=== PATIENT | female | born 1940 | race African-American/Black ===

== ENCOUNTER 2017-12-22 15:34 | Inpatient (IN) ==
--- OUTSIDE RECORDS SUMMARY | 2017-12-22 16:51 | External Medical Summary | Continuity of Care Document ---
:1940 Author Organization [facility] Allergies Active Description Code Type Severity Reaction Onset Reported/ Identified Relationship Clinical to Patient Status Yes No Known No Drug Unknown N/A 12/07/2014 Allergies Known Aller Aller gy gies Yes acetaminophe aceta Drug Mild nausea 08/23/2016 n minop Aller hen gy Yes hydrocodone hydro Drug Mild nausea 08/23/2016 codon Aller e gy Medications There is no data. Problems There is no data. Procedures There is no data.<section xmlns="urn:hl7-org:v3" xmlns:xsi=" http://www.[employer].org/2001/XMLSchema-instance"> <templateId root=" [id number]" /> <templateId root=" 2.16.840.1.484277.10.20.22.2.3.1" /> <code codeSystemName=" LOINC" codeSystem="[id number]" code="27552-4&quot ; displayName="Results" /> <title>Results</title> &lt ;text> <table> <thead> <tr> <th& gt;Test</th> <th>Result</th> <th>Range </th> </tr> </thead> <tbody> &lt ;tr> <th colspan="10">CBC W/DIFF - 08/23/16 04:19&lt ;/th> </tr> <tr> <td>EOSINOPHIL #&lt ;/td> <td>0.3 k/cumm</td> <td>0.1-0.5< /td> </tr> <tr> <td>EOSINOPHIL & #37;</td> <td>3 %</td> <td>2-4 </td> </tr> <tr> <td>GRANULOCYTE #</td> <td>9.2 k/cumm</td> <td>2.0-9.0 </td> </tr> <tr> <td>GRANULOCYTE %</td> <td>84 %</td> <td& gt;50-75</td> </tr> <tr> <td> LYMPHOCYTE #</td><td>1.3 k/cumm</td> <td>1.0- 4.0</td> </tr> <tr> <td> LYMPHOCYTE %</td> <td>11 %</td> <td>20-30</td> </tr> <tr> < td>MEAN CELLHGB</td> <td>31.5 pg</td> &lt ;td>27.0-33.0</td> </tr> <tr> <td >MEAN CELL HGB CONCENTRATION</td> <td>33.1 g/dL</td& gt; <td>32.0-37.0</td> </tr> <tr&gt ; <td>MEAN CELL VOLUME</td> <td>95.1 fl</ td> <td>80.0-100.0</td> </tr> <tr > <td>MONOCYTE #</td> <td>0.2 k/cumm</ td> <td>0.1-1.0</td> </tr> <tr&gt ; <td>MONOCYTE %</td> <td>2 &#37 ;</td> <td>4-6</td> </tr> <tr& gt; <td>RED BLOOD CELL</td> <td>3.68 m/cumm& lt;/td> <td>4.00-6.00</td> </tr> &lt ;tr> <td>RED CELL DISTRIBUTION WIDTH</td> <td& gt;12.3 %</td> <td>11.0-15.6</td> < /tr> <tr> <td>WHITE BLOOD CELL</td> <td>11.0 k/cumm</td> <td>5.0-10.0</td> </tr> <tr> <td>HEMOGLOBIN</td> <td>11.6 gm/dL</td> <td>12.0-16.0</td> </tr> <tr> <td>HEMATOCRIT</td> <td>35.0 %</td> <td>37.0-47.0</td&gt ; </tr> <tr> <td>PLATELET COUNT</td& gt; <td>262 k/cumm</td> <td>150-450</td& gt; </tr> <tr> <th colspan="10"& gt;TROPONIN I - 08/23/16 04:19</th> </tr> <tr> <td>TROPONIN I</td> <td>0.59 ng/mL</td&gt ; <td>< 0.07</td> </tr> <tr& gt; <th colspan="10">D-DIMER QUANT - 08/23/16 04:19< /th> </tr> <tr> <td>D-DIMER QUANT&lt ;/td> <td>699 ng/mL</td> <td>0-229</td > </tr> <tr> <th colspan="10"> IRON W/ BINDING CAPACITY - 08/23/16 07:07</th> </tr> & lt;tr> <td>IRON SATURATION</td><td>13 % SAT</td> <td>11-46</td> </tr> &lt ;tr> <td>IRON BINDING CAPACITY, TOTAL</td> < td>330 mcg/dL</td> <td>250-450</td> </tr > <tr> <td>IRON</td> <td>43 mcg/dL</td> <td>35-150</td> </tr> <tr > <th colspan="10">B-TYPE NATRIURETIC PEPTIDE - 07:07</th> </tr> <tr> <td>B -TYPE NATRIURETIC PEPTIDE</td> <td>161 pg/mL</td> <td>< 100</td> </tr> <tr> <th colspan="10">HEMOGLOBIN A1C - 08/23/16 07:07</th& gt; </tr> <tr> <td>HEMOGLOBIN A1C</ td> <td>5.3 %</td> <td>< 5.7</td> </tr> <tr> <th colspan=& quot;10">METABOLIC PANEL, BASIC - 08/23/16 07:08</th> </ tr> <tr> <td>POTASSIUM</td> <td> 3.3 mmol/L</td> <td>3.5-5.3</td> </tr> <tr> <td>EST GFR (MDRD)</td> <td& gt;> 60 mL/min</td> <td>> 59</td> </tr> <tr> <td>ANION GAP</td> <td>8 mmol/L</td> <td>5-15</td> </tr> <tr> <td>EST CrCl (CG)</td> <td& gt;57 mL/min</td> <td>> 59</td> </tr > <tr> <td>GLUCOSE</td> <td>161 mg/dL </td> <td>70-99</td> </tr> <tr > <td>CALCIUM</td> <td>10.6 mg/dL</td& gt; <td>8.5-10.1</td> </tr> <tr> <td>BLOOD UREA NITROGEN</td> <td>10 mg/dL</td& gt; <td>7-20</td> </tr> <tr> <td>CREATININE</td> <td>0.9 mg/dL</td> <td>0.6-1.0</td> </tr> <tr> &lt ;td>SODIUM</td> <td>138 mmol/L</td> < td>135-148</td> </tr> <tr> <td&gt ;CHLORIDE</td> <td>101 mmol/L</td> <td> 98-110</td> </tr> <tr> <td>CARBON DIOXIDE</td> <td>29 mmol/L</td> <td>21-32& lt;/td> </tr> <tr> <th colspan="10 ">LIPID PANEL - 08/23/16 07:08</th> </tr> < tr> <td>CHOLESTEROL/HDL RATIO</td> <td> 2.4 </td> <td> < 5.0</td> </tr> <tr> <td>LDL CHOLESTEROL</td> <td&gt ;79 mg/dL</td> <td>< 100</td> </tr& gt; <tr> <td>VLDL CHOLESTEROL</td> < td>9 mg/dL</td> <td>< 30</td> </ tr> <tr> <td>TRIGLYCERIDES</td> & lt;td>47 mg/dL</td> <td>< 150</td> & lt;/tr> <tr> <td>CHOLESTEROL</td> <td>150 mg/dL</td> <td>< 200</td> </tr> <tr> <td>HDL CHOLESTEROL</td> <td>62 mg/dL</td> <td>> 39</td> </tr> <tr> <th colspan="10"> MAGNESIUM - 08/23/16 07:08</th> </tr> <tr> <td>MAGNESIUM</td> <td>1.6 mg/dL</td> <td>1.8-2.4</td> </tr> <tr> < th colspan="10">FERRITIN - 08/23/16 07:08</th> </tr > <tr> <td>FERRITIN</td> <td&gt ;648 ng/mL</td> <td>8-252</td> </tr> <tr> <th colspan="10">THYROID STIM HORMONE (TSH ) - 08/23/16 07:08</th> </tr> <tr> <td> THYROID STIM HORMONE (TSH)</td> <td>0.49 uIU/mL</td> <td>0.34-4.82</td> </tr> <tr> <th colspan="10">URINALYSIS, ROUTINE - 08/23/16 13:30&lt ;/th> </tr> <tr> <td>UA LEUKOCYTE ESTERASE DIPSTICK</td><td>NEGATIVE </td> <td>NEGATIVE&lt ;/td> </tr> <tr> <td>UA NITRITE DIPSTICK</td> <td>NEGATIVE </td> <td> NEGATIVE</td> </tr> <tr> <td>UA PROTEINDIPSTICK</td> <td>1+ </td> <td> NEGATIVE</td> </tr> <tr> <td>UA GLUCOSE DIPSTICK</td> <td>NEGATIVE </td> &lt ;td>NEGATIVE</td> </tr> <tr> <td>UA KETONE DIPSTICK</td> <td>NEGATIVE </td> < td>NEGATIVE</td> </tr> <tr> <td& gt;UA UROBILINOGEN DIPSTICK</td> <td>NORMAL </td> <td>NORMAL</td> </tr> <tr> <td>UA BILIRUBIN DIPSTICK</td> <td>NEGATIVE </td > <td>NEGATIVE</td> </tr> <tr&gt ; <td>UA BLOOD DIPSTICK</td> <td>TRACE </ td> <td>NEGATIVE</td> </tr> <tr& gt; <td>UA SPECIFIC GRAVITY</td> <td>1.005 </ td> <td>1.015-1.025</td> </tr> <tr> <td>UR PH</td> <td>6.5 </td> <td>5.0-7.0</td> </tr> <tr> < th colspan="10">UA MICROSCOPIC - // 13:30</th> & lt;/tr> <tr> <td>UA BACTERIA</td> <td>NEGATIVE </td> <td>NEGATIVE</td> </tr > <tr> <td>UA EPITHELIAL CELLS</td> <td>1+ epi/hpf</td> <td>0 - 1+</td> & lt;/tr> <tr> <td>UA MUCUS</td> <td& gt;NEGATIVE </td> <td>NEG TO 1+</td> </tr& gt; <tr> <td>UA RBC</td> <td>0- 3 rbc/hpf</td> <td>0 - 3</td> </tr> <tr> <td>UA TRICHOMONAS</td> <td> NEGATIVE </td> <td>NEGATIVE</td> </tr> <tr> <td>UA VOLUME FOR EXAM</td> < td>12.0 mL</td> <td>(12mL STD)</td> </tr > <tr> <td>UA WBC</td> <td>0 -1 wbc/hpf</td> <td>0 - 5</td> </tr> <tr> <td>UA YEAST</td> <td> NEGATIVE </td> <td>NEGATIVE</td> </tr> <tr> <th colspan="10">VIRUS RESPIRATORY PROFILE - 08/23/16 16:15</th> </tr> <tr> <td>Microbiology</td> <td> </td> & lt;td /> </tr> <tr> <th colspan="10"& gt;GRAM STAIN SPUTUM - 08/23/16 17:27</th> </tr> <tr& gt; <td>Microbiology</td> <td> </td>& lt;td /> </tr> <tr> <th colspan=" 10">CBC W/DIFF - 08/24/16 03:45</th> </tr> &lt ;tr> <td>GRANULOCYTE #</td> <td>12.1 k/ cumm</td> <td>2.0-9.0</td> </tr> <tr> <td>GRANULOCYTE %</td> <td& gt;80 %</td> <td>50-75</td> </tr&gt ; <tr> <td>LYMPHOCYTE #</td> <td>2.4 k/ cumm</td> <td>1.0-4.0</td> </tr> <tr> <td>LYMPHOCYTE %</td> <td> 16 %</td> <td>20-30</td> </tr> <tr> <td>MEAN CELL HGB</td> <td> 31.4 pg</td> <td>27.0-33.0</td> </tr> <tr> <td>MEAN CELL HGB CONCENTRATION</td> & lt;td>33.3 g/dL</td> <td>32.0-37.0</td> &lt ;/tr> <tr> <td>MEAN CELL VOLUME</td> <td >94.3 fl</td> <td>80.0-100.0</td> </tr& gt; <tr> <td>MONOCYTE #</td> <td& gt;0.5 k/cumm</td> <td>0.1-1.0</td> </tr&gt ; <tr> <td>MONOCYTE %</td> & lt;td>3 %</td> <td>4-6</td> </tr > <tr> <td>RED BLOOD CELL</td> &lt ;td>3.66 m/cumm</td> <td>4.00-6.00</td> &lt ;/tr> <tr> <td>RED CELL DISTRIBUTION WIDTH</td > <td>12.3 %</td> <td>11.0-15.6& lt;/td> </tr> <tr> <td>WHITE BLOOD CELL</td> <td>15.1 k/cumm</td> <td>5.0 -10.0</td> </tr> <tr> <td> HEMOGLOBIN</td> <td>11.5 gm/dL</td> <td& gt;12.0-16.0</td> </tr> <tr> <td> HEMATOCRIT</td> <td>34.5 %</td> < td>37.0-47.0</td> </tr> <tr> <td& gt;PLATELET COUNT</td> <td>275 k/cumm</td> & lt;td>150-450</td> </tr> <tr> < th colspan="10">PROTHROMBIN TIME WITH INR - 08/24/16 03:45</th& gt; </tr> <tr> <td>INTERNATIONAL NORMAL RATIO</td> <td>1.0 </td> <td>0.9-1.1</td&gt ; </tr> <tr> <td>PROTHROMBIN TIME</ td> <td>12.0 sec</td> <td>10.0-12.9</ td> </tr> <tr> <th colspan="10& quot;>METABOLIC PANEL, BASIC - 08/24/16 03:45</th> </tr> <tr> <td>POTASSIUM</td> <td>4.2 mmol/L& lt;/td> <td>3.5-5.3</td> </tr> < tr> <td>EST GFR (MDRD)</td><td>53 mL/min</td&gt ; <td>> 59</td> </tr> <tr&gt ; <td>ANION GAP</td> <td>12 mmol/L</td&gt ; <td>5-15</td> </tr> <tr> <td>EST CrCl (CG)</td> <td>43 mL/min</td> <td>> 59</td> </tr> <tr> <td>GLUCOSE</td> <td>126 mg/dL</td> <td>70-99</td> </tr> <tr> & lt;td>CALCIUM</td> <td>11.2 mg/dL</td> & lt;td>8.5-10.1</td> </tr> <tr> < td>BLOOD UREA NITROGEN</td> <td>21 mg/dL</td> <td>7-20</td> </tr> <tr> & lt;td>CREATININE</td> <td>1.2 mg/dL</td> <td>0.6-1.0</td> </tr> <tr> < td>SODIUM</td> <td>141 mmol/L</td> <td >135-148</td> </tr> <tr> <td> CHLORIDE</td> <td>103 mmol/L</td> <td> 98-110</td> </tr> <tr> <td> CARBON DIOXIDE</td> <td>26 mmol/L</td> < td>21-32</td> </tr> <tr> <th colspan ="10">MAGNESIUM - 08/24/16 03:45</th> </tr> & lt;tr> <td>MAGNESIUM</td> <td>2.1 mg/dL& lt;/td> <td>1.8-2.4</td> </tr> <tr> <th colspan="10">METABOLIC PANEL, BASIC - 08/25/16 04:01 </th> </tr> <tr> <td>POTASSIUM</td& gt; <td>4.4 mmol/L</td> <td>3.5-5.3</td& gt; </tr> <tr> <td>EST GFR (MDRD)</ td> <td>53 mL/min</td> <td>> 59</td& gt; </tr> <tr> <td>ANION GAP</td> <td>9 mmol/L</td><td>5-15</td> </tr> <tr> <td>EST CrCl (CG)</td> <td&gt ;43 mL/min</td> <td>> 59</td> </tr& gt; <tr> <td>GLUCOSE</td> <td> 125 mg/dL</td> <td>70-99</td> </tr> <tr> <td>CALCIUM</td> <td>10.7 mg/ dL</td> <td>8.5-10.1</td> </tr> & lt;tr> <td>BLOOD UREA NITROGEN</td> <td> 29 mg/dL</td> <td>7-20</td> </tr> <tr> <td>CREATININE</td> <td>1.2 mg/ dL</td> <td>0.6-1.0</td> </tr> & lt;tr> <td>SODIUM</td> <td>140mmol/L</ td> <td>135-148</td> </tr> <tr&gt ; <td>CHLORIDE</td> <td>104 mmol/L</td> <td>98-110</td> </tr> <tr> &lt ;td>CARBON DIOXIDE</td> <td>27 mmol/L</td> <td>21-32</td> </tr> <tr> < th colspan="10">CBC - 08/26/16 04:01</th> </tr>& lt;tr> <td>MEAN CELL HGB</td> <td>30.8 pg </td> <td>27.0-33.0</td> </tr> <tr> <td>MEAN CELL HGB CONCENTRATION</td> <td> 32.0 g/dL</td> <td>32.0-37.0</td> </tr> <tr> <td>MEAN CELL VOLUME</td> < td>96.3 fl</td> <td>80.0-100.0</td> </tr > <tr> <td>RED BLOOD CELL</td> &lt ;td>3.54 m/cumm</td> <td>4.00-6.00</td> &lt ;/tr> <tr> <td>RED CELL DISTRIBUTION WIDTH</td > <td>12.7 %</td> <td>11.0-15.6& lt;/td> </tr> <tr> <td>WHITE BLOOD CELL</td> <td>15.9 k/cumm</td> <td>5.0 -10.0</td> </tr> <tr> <td> HEMOGLOBIN</td> <td>10.9 gm/dL</td> <td& gt;12.0-16.0</td> </tr> <tr> <td> HEMATOCRIT</td> <td>34.1 %</td> < td>37.0-47.0</td> </tr> <tr> <td& gt;PLATELET COUNT</td> <td>244 k/cumm</td> & lt;td>150-450</td> </tr> </tbody> </table > </text> <entry> <organizer moodCode="EVN" classCode="BATTERY"> <templateId root=" [id number].1" /> <id nullFlavor="NA&quot ; /> <code codeSystem="local" code="CBCD" displayName="CBC W/DIFF" /> <statusCode code=" completed" /> <component> <observation moodCode=& quot;EVN" classCode="OBS"> <templateId root=" [id number].2" /> <id nullFlavor="NA& quot; /> <code codeSystem="local" code="EO#" displayName="EOSINOPHIL #" /> <statusCode code=" completed" /> <effectiveTime value="[id number]" /> <value unit="k/cumm" xsi:type="PQ" value=& quot;0.3" /> <referenceRange> < observationRange> <text>0.1-0.5</text> &lt ;/observationRange> </referenceRange> </observation& gt; </component> <component> <observation moodCode="EVN" classCode="OBS"> <templateId root="[id number].2" /> <id nullFlavor ="NA" /><code codeSystem="local" code="EO&#37 ;" displayName="EOSINOPHIL %" /> < statusCode code="completed" /> <effectiveTimevalue=& quot;850674885124" /> <value unit="%" xsi: type="PQ" value="3" /> <referenceRange> <observationRange> <text>2-4</text> </observationRange> </referenceRange> </ observation> </component> <component> < observation moodCode="EVN" classCode="OBS"> < templateId root="[id number].2" /> < id nullFlavor="NA" /> <code codeSystem="local&quot ; code="GR#" displayName="GRANULOCYTE #" /> < statusCode code="completed" /> <effectiveTime value=& quot;835365785555" /> <value unit="k/cumm" xsi: type="PQ" value="9.2" /> <interpretationCode codeSystem="local" code="*" /> <referenceRange&gt ; <observationRange> <text>2.0-9.0</text& gt; </observationRange> </referenceRange> </observation> </component> <component> &lt ;observation moodCode="EVN"classCode="OBS"> < templateId root="[id number].2" /> < id nullFlavor="NA" /> <code codeSystem="local&quot ; code="GR%" displayName="GRANULOCYTE %" /& gt; <statusCode code="completed" /> < effectiveTime value="925951320898" /> <value unit=&quot ;%" xsi:type="PQ" value="84" /> < interpretationCode codeSystem="local" code="*" /> <referenceRange> <observationRange> < text>50-75</text> </observationRange> </ referenceRange> </observation> </component> < component> <observation moodCode="EVN" classCode=" OBS"> <templateId root="[id number]..22.4.2& quot; /><id nullFlavor="NA" /> <code codeSystem=& quot;local" code="LY#" displayName="LYMPHOCYTE #" /&gt ; <statusCode code="completed" /> < effectiveTime value="728215287681" /> <value unit=&quot ;k/cumm" xsi:type="PQ" value="1.3" /> < referenceRange> <observationRange> <text>1.0-4.0 </text> </observationRange> </referenceRange& gt; </observation> </component> <component> <observation moodCode="EVN" classCode="OBS"> &lt ;templateId root="[id number].2" /> < id nullFlavor="NA" /> <code codeSystem="local&quot ; code="LY%" displayName="LYMPHOCYTE %" /&gt ; <statusCode code="completed" /> < effectiveTime value="352677497932" /> <value unit=&quot ;%" xsi:type="PQ" value="11" /> &lt ;interpretationCode codeSystem="local" code="*" /> <referenceRange> <observationRange> < text>20-30</text> </observationRange> </ referenceRange> </observation> </component> < component> <observation moodCode="EVN" classCode=" OBS"> <templateId root="[id number].2& quot; /> <id nullFlavor="NA" /> <code codeSystem="local" code="MCH" displayName="MEAN CELL HGB" /> <statusCode code="completed" /> <effectiveTime value="554268965954" /> <value unit="pg" xsi:type="PQ" value="31.5" /> <referenceRange> <observationRange> <text> 27.0-33.0</text> </observationRange> </ referenceRange> </observation> </component> < component> <observation moodCode="EVN" classCode=" OBS"> <templateId root="[id number].2& quot; /> <id nullFlavor="NA" /> <code codeSystem="local" code="MCHC" displayName="MEAN CELL HGB CONCENTRATION" /> <statusCode code="completed&quot ; /> <effectiveTime value="028051098348" /> <value unit="g/dL" xsi:type="PQ" value="33.1&quot ; /> <referenceRange> <observationRange> <text>32.0-37.0</text> </observationRange> </referenceRange> </observation> </component> <component> <observation moodCode="EVN" classCode= "OBS"> <templateId root=" [id number].2" /> <id nullFlavor="NA& quot; /> <code codeSystem="local" code="MCV" displayName="MEAN CELL VOLUME" /> <statusCode code=" completed" /> <effectiveTime value="494225333925" /> <value unit="fl" xsi:type="PQ" value=&quot ;95.1" /> <referenceRange> < observationRange> <text>80.0-100.0</text> </observationRange> </referenceRange> </observation& gt; </component> <component> <observation moodCode="EVN" classCode="OBS"> <templateId root="[id number]..22.4.2" /> <id nullFlavor ="NA" /> <code codeSystem="local" code=" MO#" displayName="MONOCYTE #" /> <statusCode code= "completed" /> <effectiveTime value="435350303807& quot; /> <value unit="k/cumm" xsi:type="PQ" value="0.2" /> <referenceRange> < observationRange> <text>0.1-1.0</text> & lt;/observationRange> </referenceRange> </ observation> </component> <component> < observation moodCode="EVN" classCode="OBS"> < templateId root="[id number].2" /> < id nullFlavor="NA" /> <code codeSystem="local&quot ; code="MO%" displayName="MONOCYTE %" /> <statusCode code="completed" /> < effectiveTime value="763934152473" /> <value unit="& #37;" xsi:type="PQ" value="2" /> < interpretationCode codeSystem="local" code="*" /> <referenceRange> <observationRange> < text>4-6</text> </observationRange> </ referenceRange> </observation> </component> < component> <observation moodCode="EVN" classCode=" OBS"> <templateId root="[id number].2& quot; /> <id nullFlavor="NA" /> <code codeSystem="local" code="RBC" displayName="RED BLOOD CELL" /> <statusCode code="completed" /> <effectiveTime value="248980823223" /> <value unit=& quot;m/cumm" xsi:type="PQ" value="3.68" /> <interpretationCode codeSystem="local" code="*" /> <referenceRange> <observationRange> & lt;text>4.00-6.00</text> </observationRange> </ referenceRange> </observation> </component> < component> <observation moodCode="EVN" classCode="OBS "> <templateId root="2.16.840.1.114577.10.20.22.4.2& quot; /> <id nullFlavor="NA" /> <code codeSystem="local" code="RDW" displayName="RED CELL DISTRIBUTION WIDTH" /> <statusCode code="completed&quot ; /> <effectiveTime value="996049368566" /> <value unit="%" xsi:type="PQ" value="12.3& quot; /> <referenceRange> <observationRange> <text>11.0-15.6</text> </ observationRange> </referenceRange> </observation> </component> <component> <observation moodCode=& quot;EVN" classCode="OBS"> <templateId root=" [id number].2" /> <id nullFlavor="NA& quot; /> <code codeSystem="local" code="WBC" displayName="WHITE BLOOD CELL" /> <statusCode code=& quot;completed" /> <effectiveTime value="386220128647& quot; /> <value unit="k/cumm" xsi:type="PQ" value="11.0" /> <interpretationCode codeSystem=" local" code="*" /> <referenceRange> <observationRange> <text>5.0-10.0</text> </observationRange> </referenceRange> </ observation> </component> <component> < observation moodCode="EVN" classCode="OBS"> < templateId root="[id number]" /> < id nullFlavor="NA" /> <code codeSystem="local&quot ; code="HGBT" displayName="HEMOGLOBIN" /> < statusCode code="completed" /> <effectiveTime value=& quot;968856583418" /> <value unit="gm/dL" xsi:type ="PQ" value="11.6" /> <interpretationCode codeSystem="local" code="*" /> < referenceRange> <observationRange> <text> 12.0-16.0</text> </observationRange> </ referenceRange> </observation> </component> < component> <observation moodCode="EVN" classCode=" OBS"> <templateId root="2.16.840.1.098554.10.20.22.4.2& quot; /> <id nullFlavor="NA" /> <code codeSystem="local" code="HCTT" displayName="HEMATOCRIT& quot; /> <statusCode code="completed" /> & lt;effectiveTime value="[id number]" /> <value unit=& quot;%" xsi:type="PQ" value="35.0" /> <interpretationCode codeSystem="local" code="*" /&gt ; <referenceRange> <observationRange> <text >37.0-47.0</text> </observationRange> </ referenceRange> </observation> </component> < component> <observation moodCode="EVN" classCode=" OBS"> <templateId root="2.16.840.1.480253.10.20.22.4.2" / > <id nullFlavor="NA" /> <code codeSystem="local" code="PLT" displayName="PLATELET COUNT" /> <statusCode code="completed" /> <effectiveTime value="246881835463" /> <value unit="k/cumm" xsi:type="PQ" value="262" /> <referenceRange> <observationRange> & lt;text>150-450</text> </observationRange> </ referenceRange> </observation> </component> </ organizer> </entry> <entry> <organizer moodCode="EVN& quot; classCode="BATTERY"> <templateId root=" 2.16.840.1.993515.10.20.22.4.1" /> <id nullFlavor="NA&quot ; /> <code codeSystem="local" code="TROPI" displayName="TROPONIN I" /> <statusCode code=" completed" /> <component> <observation moodCode=& quot;EVN" classCode="OBS"> <templateId root=" 2.16.840.1.921627.10.20.22.4.2" /> <id nullFlavor="NA& quot;/> <code codeSystem="local" code="TROPI&quot ; displayName="TROPONIN I" /> <statusCode code=" completed" /> <effectiveTime value="591402632645" /> <value unit="ng/mL" xsi:type="PQ" value=& quot;0.59" /> <interpretationCode codeSystem="local& quot; code="" /> <referenceRange> < observationRange> <text>< 0.07</text> </observationRange> </referenceRange> </ observation> </component> </organizer> </entry> & lt;entry> <organizer moodCode="EVN" classCode="BATTERY& quot;> <templateId root="2.16.840.1.895153.10.20.22.4.1" /& gt; <id nullFlavor="NA" /> <code codeSystem=" local" code="DIMER" displayName="D-DIMER QUANT" /> <statusCode code="completed" /> <component> <observation moodCode="EVN" classCode="OBS"> <templateId root="2.16.840.1.466698.10.20.22.4.2" /> <id nullFlavor="NA" /> <code codeSystem=" local" code="DIMER" displayName="D-DIMER QUANT" /> <statusCode code="completed" /> < effectiveTime value="698665068137" /> <value unit=&quot ;ng/mL" xsi:type="PQ" value="699" /> < interpretationCode codeSystem="local" code="*" /> & lt;referenceRange> <observationRange> <text& gt;0-229</text> </observationRange> </ referenceRange> </observation> </component> </ organizer> </entry> <entry> <organizer moodCode="EVN " classCode="BATTERY"> <templateId root=" 2.16.840.1.212158.10.20.22.4.1" /> <id nullFlavor="NA&quot ; /> <code codeSystem="local" code="FETIBC" displayName="IRON W/ BINDING CAPACITY" /> <statusCode code= "completed" /> <component> <observation moodCode="EVN" classCode="OBS"> <templateId root="2.16.840.1.602833.10..22.4.2" /> <id nullFlavor ="NA" /> <code codeSystem="local" code=" FESAT" displayName="IRON SATURATION" /> < statusCode code="completed" /> <effectiveTime value=& quot;882754158212"/> <value unit="%SAT" xsi:type="PQ" value="13" /> <referenceRange& gt; <observationRange> <text>11-46</text& gt; </observationRange> </referenceRange> </observation> </component> <component> &lt ;observation moodCode="EVN" classCode="OBS"> &lt ;templateId root="2.16.840.1.748911.10.20.22.4.2" /> < id nullFlavor="NA" /> <code codeSystem="local&quot ; code="TIBC" displayName="IRON BINDING CAPACITY, TOTAL" /& gt; <statusCode code="completed" /> < effectiveTime value="558940807069" /> <value unit=&quot ;mcg/dL" xsi:type="PQ" value="330" /> < referenceRange> <observationRange> <text> 250-450</text> </observationRange> </ referenceRange> </observation> </component> < component> <observation moodCode="EVN" classCode=" OBS"> <templateId root="2.16.840.1.523888.10.20.22.4.2& quot; /> <id nullFlavor="NA" /> <code codeSystem="local" code="IRON" displayName="IRON" /> <statusCode code="completed" /> < effectiveTime value="608952263332" /> <value unit=&quot ;mcg/dL" xsi:type="PQ" value="43" /> < referenceRange> <observationRange> <text> 35-150</text> </observationRange> </ referenceRange> </observation> </component> </ organizer> </entry> <entry> <organizer moodCode="EVN " classCode="BATTERY"> <templateId root=" 2.16.840.1.782307.10.20.22.4.1" /> <id nullFlavor="NA&quot ; /> <code codeSystem="local" code="BNP" displayName="B-TYPE NATRIURETIC PEPTIDE" /> <statusCode code="completed" /> <component> <observation moodCode="EVN" classCode="OBS"> <templateId root="2.16.840.1.983231.10.20.22.4.2" /> <id nullFlavor ="NA" /> <code codeSystem="local" code=" BNP" displayName="B-TYPE NATRIURETIC PEPTIDE" /> < statusCode code="completed" /> <effectiveTime value=& quot;813641650522" /> <value unit="pg/mL" xsi:type=" PQ" value="161" /> <interpretationCode codeSystem= "local" code="*" /> <referenceRange> <observationRange> <text>< 100</text& gt; </observationRange> </referenceRange> </ observation> </component> </organizer> </entry> & lt;entry> <organizer moodCode="EVN" classCode="BATTERY& quot;> <templateId root="2.16.840.1.042920.10.20.22.4.1" /& gt; <id nullFlavor="NA" /> <code codeSystem=" local" code="HBA1C" displayName="HEMOGLOBIN A1C" /> <statusCode code="completed" /> <component> <observation moodCode="EVN" classCode="OBS"> <templateId root="2.16.840.1.164849.10.20.22.4.2" /> & lt;id nullFlavor="NA" /> <code codeSystem="local& quot; code="HBA1C" displayName="HEMOGLOBIN A1C" /> <statusCode code="completed" /> <effectiveTime value="430112794865" /> <value unit="%& quot; xsi:type="PQ" value="5.3" /> < referenceRange> <observationRange> <text> < 5.7</text> </observationRange> </ referenceRange> </observation> </component> </ organizer> </entry> <entry> <organizer moodCode="EVN " classCode="BATTERY"> <templateId root=" 2.16.840.1.316430.10.20.22.4.1" /> <id nullFlavor="NA&quot ; /> <code codeSystem="local" code="METAB" displayName="METABOLIC PANEL, BASIC" /> <statusCode code=& quot;completed" /> <component> <observation moodCode="EVN" classCode="OBS"> <templateId root="2.16.840.1.541258.10.20.22.4.2" /> <id nullFlavor ="NA" /> <code codeSystem="local" code=" K" displayName="POTASSIUM" /> <statusCode code=& quot;completed" /> <effectiveTime value="592313782005& quot; /> <value unit="mmol/L" xsi:type="PQ" value="3.3" /> <interpretationCode codeSystem=" local" code="*" /> <referenceRange> <observationRange> <text>3.5-5.3</text> </observationRange> </referenceRange> </ observation> </component> <component> < observation moodCode="EVN" classCode="OBS"> < templateId root="2.16.840.1.624210.10.20.22.4.2" /> < id nullFlavor="NA" /> <code codeSystem="local&quot ; code="eGFR" displayName="EST GFR (MDRD)" /> & lt;statusCode code="completed" /> <effectiveTime value= "974166732225" /> <value unit="mL/min" xsi: type="PQ" value="> 60" /> < referenceRange> <observationRange> <text> > 59</text> </observationRange> </ referenceRange> </observation> </component> < component> <observation moodCode="EVN" classCode=" OBS"> <templateId root="2.16.840.1.798768.10.20.22.4.2& quot; /> <id nullFlavor="NA" /> <code codeSystem="local" code="GAP" displayName="ANION GAP& quot; /> <statusCode code="completed" /> & lt;effectiveTime value="858706069474" /> <value unit=& quot;mmol/L" xsi:type="PQ" value="8" /> &lt ;referenceRange> <observationRange> <text>5- 15</text> </observationRange> </ referenceRange> </observation> </component> < component> <observation moodCode="EVN" classCode=" OBS"> <templateId root="2.16.840.1.745667.10.20.22.4.2& quot; /> <id nullFlavor="NA" /> <code codeSystem="local" code="eCrCl" displayName="EST CrCl ( CG)" /> <statusCode code="completed" /> & lt;effectiveTime value="071512786021" /> <value unit=& quot;mL/min" xsi:type="PQ" value="57" /> & lt;interpretationCode codeSystem="local" code="*" /> <referenceRange> <observationRange> <text >> 59</text> </observationRange> </ referenceRange> </observation> </component> < component> <observation moodCode="EVN" classCode=" OBS"> <templateId root="2..840.1.534973.10..22.4.2& quot; /> <id nullFlavor="NA" /> <code codeSystem="local" code="GLU" displayName="GLUCOSE&quot ; /> <statusCode code="completed" /> < effectiveTime value="009891219457" /> <value unit=&quot ;mg/dL" xsi:type="PQ" value="161" /> < interpretationCode codeSystem="local" code="*" /> <referenceRange> <observationRange> <text> 70-99</text> </observationRange> </ referenceRange> </observation> </component> < component> <observation moodCode="EVN" classCode=" OBS"> <templateId root="2.16.840.1.798656.10.20.22.4.2" /& gt; <id nullFlavor="NA" /> <code codeSystem ="local" code="CA" displayName="CALCIUM" /> <statusCode code="completed" /> < effectiveTime value="737110503001" /> <value unit=&quot ;mg/dL" xsi:type="PQ" value="10.6" /> < interpretationCode codeSystem="local" code="*" /> <referenceRange> <observationRange> <text>8.5- 10.1</text> </observationRange> </ referenceRange> </observation> </component> < component> <observation moodCode="EVN" classCode=" OBS"> <templateId root="2.16.840.1.328375.10.20.22.4.2& quot; /> <id nullFlavor="NA" /> <code codeSystem="local" code="BUN" displayName="BLOOD UREA NITROGEN" /> <statusCode code="completed" /> <effectiveTime value="526110462356" /> <value unit="mg/dL" xsi:type="PQ" value="10" /> <referenceRange> <observationRange> < text>7-20</text> </observationRange> </ referenceRange> </observation> </component> < component> <observation moodCode="EVN" classCode=" OBS"> <templateId root="2.16.840.1.106955.10..22.4.2& quot; /> <id nullFlavor="NA" /> <code codeSystem="local" code="CREAT" displayName="CREATININE " /> <statusCode code="completed" /> & lt;effectiveTime value="071221327363" /> <value unit="mg/ dL" xsi:type="PQ" value="0.9" /> < referenceRange> <observationRange> <text> 0.6-1.0</text> </observationRange> </ referenceRange> </observation> </component> < component> <observation moodCode="EVN" classCode=" OBS"> <templateId root="2.16.840.1.717925.10.20.22.4.2& quot; /> <id nullFlavor="NA" /> <code codeSystem="local" code="NA" displayName="SODIUM" /> <statusCode code="completed" /> < effectiveTime value="554439224861" /> <value unit=&quot ;mmol/L" xsi:type="PQ" value="138" /> < referenceRange> <observationRange> <text>135-148 </text> </observationRange> </referenceRange& gt; </observation> </component> <component> <observation moodCode="EVN" classCode="OBS"> &lt ;templateId root="2.16.840.1.058795.10.20.22.4.2" /> < id nullFlavor="NA" /> <code codeSystem="local&quot ; code="CL" displayName="CHLORIDE" /> < statusCode code="completed" /> <effectiveTime value=& quot;135567510290" /> <value unit="mmol/L" xsi: type="PQ" value="101" /> <referenceRange> <observationRange> <text>98-110</text&gt ; </observationRange> </referenceRange> & lt;/observation> </component> <component> < observation moodCode="EVN" classCode="OBS"> < templateId root="2.16.840.1.533912.10.20.22.4.2" /> < id nullFlavor="NA" /> <code codeSystem="local" code="CO2" displayName="CARBON DIOXIDE" /> < statusCode code="completed" /> <effectiveTime value=& quot;221100930535" /> <value unit="mmol/L" xsi: type="PQ" value="29" /> <referenceRange> <observationRange> <text>21-32</text> & lt;/observationRange> </referenceRange> </ observation> </component> </organizer> </entry> & lt;entry> <organizer moodCode="EVN" classCode="BATTERY& quot;> <templateId root="2.16.840.1.041370.10.20.22.4.1" /& gt; <id nullFlavor="NA" /> <code codeSystem=" local" code="HDLPRO" displayName="LIPID PANEL"/> <statusCode code="completed" /> <component> <observation moodCode="EVN" classCode="OBS"> <templateId root="2.16.840.1.455839.10.20.22.4.2" /> <id nullFlavor="NA" /> <code codeSystem=" local" code="CHOL/HDL" displayName="CHOLESTEROL/HDL RATIO& quot; /> <statusCode code="completed" /> & lt;effectiveTime value="796864227356" /> <value unit=& quot;" xsi:type="PQ" value="2.4" /> < referenceRange> <observationRange> <text&gt ; < 5.0</text> </observationRange> </ referenceRange> </observation> </component> < component> <observationmoodCode="EVN" classCode="OBS "> <templateId root="2.16.840.1.842356.10..22.4.2& quot; /> <id nullFlavor="NA" /> <code codeSystem="local" code="LDLX" displayName="LDL CHOLESTEROL" /> <statusCode code="completed" /> <effectiveTime value="479953467561" /> <value unit="mg/dL" xsi:type="PQ" value="79" /> <referenceRange> <observationRange> < text>< 100</text> </observationRange> </referenceRange> </observation> </component> <component> <observation moodCode="EVN" classCode=& quot;OBS"> <templateId root=" 2.16.840.1.672614.10.20.22.4.2" /> <id nullFlavor="NA& quot; /> <code codeSystem="local" code="VLDL&quot ; displayName="VLDL CHOLESTEROL" /> <statusCode code=& quot;completed" /> <effectiveTime value="060104266925& quot; /> <value unit="mg/dL" xsi:type="PQ" value="9" /> <referenceRange> < observationRange> <text>< 30</text> </observationRange> </referenceRange> </ observation> </component> <component> < observation moodCode="EVN" classCode="OBS"> < templateId root="2.16.840.1.071386.10.20.22.4.2" /> < id nullFlavor="NA" /> <code codeSystem="local&quot ; code="TRIG" displayName="TRIGLYCERIDES" /> &lt ;statusCode code="completed" /> <effectiveTime value=& quot;069408437132" /> <value unit="mg/dL" xsi:type ="PQ" value="47" /> <referenceRange> <observationRange> <text>< 150</text& gt; </observationRange> </referenceRange> & lt;/observation></component> <component> < observation moodCode="EVN" classCode="OBS"> < templateId root="2.16.840.1.152803.10.20.22.4.2" /> <id nullFlavor="NA" /> <code codeSystem="local" code="CHOL" displayName="CHOLESTEROL" /> < statusCode code="completed" /> <effectiveTime value=& quot;235228280584" /> <value unit="mg/dL" xsi:type ="PQ" value="150" /> <referenceRange> <observationRange> <text>< 200</text&gt ; </observationRange> </referenceRange> & lt;/observation> </component> <component> < observation moodCode="EVN" classCode="OBS"> < templateId root="2.16.840.1.153610.10.20.22.4.2" /> < id nullFlavor="NA" /> <code codeSystem="local&quot ; code="HDL" displayName="HDL CHOLESTEROL" /> & lt;statusCode code="completed" /> <effectiveTime value=& quot;092991160624" /> <value unit="mg/dL" xsi:type ="PQ" value="62" /> <referenceRange> <observationRange> <text>> 39</text&gt ; </observationRange> </referenceRange> & lt;/observation> </component> </organizer> </entry&gt ; <entry> <organizer moodCode="EVN" classCode=" BATTERY"> <templateId root="2.16.840.1.069461.10.20.22.4.1& quot; /> <id nullFlavor="NA" /> <code codeSystem ="local" code="MAG"displayName="MAGNESIUM" /> <statusCode code="completed" /> <component> <observation moodCode="EVN" classCode="OBS"> < templateId root="2.16.840.1.063133.10..22.4.2" /> < id nullFlavor="NA" /> <code codeSystem="local&quot ; code="MAG" displayName="MAGNESIUM" /> < statusCode code="completed" /> <effectiveTime value=& quot;054212047296" /> <value unit="mg/dL" xsi:type ="PQ" value="1.6" /> <interpretationCode codeSystem="local" code="*" /> < referenceRange> <observationRange> <text>1.8-2.4</ text> </observationRange> </referenceRange> </observation> </component> </organizer> </ entry> <entry> <organizer moodCode="EVN" classCode=& quot;BATTERY"> <templateId root=" 2.16.840.1.472275.10.20.22.4.1" /> <id nullFlavor="NA&quot ; /> <code codeSystem="local" code="MANUEL" displayName="FERRITIN" /> <statusCode code="completed& quot; /> <component> <observationmoodCode="EVN&quot ; classCode="OBS"> <templateId root=" 2.16.840.1.314307.10.20.22.4.2" /> <id nullFlavor="NA& quot; /> <code codeSystem="local" code="MANUEL" displayName="FERRITIN" /> <statusCode code=" completed" /> <effectiveTime value="822792373501" /> <value unit="ng/mL" xsi:type="PQ" value=& quot;648" /> <interpretationCode codeSystem="local" code="*" /> <referenceRange> < observationRange> <text>8-252</text> </ observationRange> </referenceRange> </observation&gt ; </component> </organizer> </entry> <entry> <organizer moodCode="EVN" classCode="BATTERY"> <templateId root="2.16.840.1.567112.10.20.22.4.1" /> < id nullFlavor="NA" /> <code codeSystem="local" code="TSH" displayName="THYROID STIM HORMONE (TSH)" /> <statusCode code="completed" /> <component> <observation moodCode="EVN" classCode="OBS"> <templateId root="2.16.840.1.901235.10.20.22.4.2" /> <id nullFlavor="NA" /> <code codeSystem=" local" code="TSH" displayName="THYROID STIM HORMONE (TSH)& quot; /> <statusCode code="completed" /> & lt;effectiveTime value="884144607353" /> <value unit=& quot;uIU/mL" xsi:type="PQ" value="0.49" /> < referenceRange> <observationRange> <text> 0.34-4.82</text> </observationRange> </ referenceRange> </observation> </component> </ organizer> </entry> <entry> <organizermoodCode="EVN& quot; classCode="BATTERY"> <templateId root=" 2.16.840.1.911071.10.20.22.4.1" /> <id nullFlavor="NA&quot ; /> <code codeSystem="local" code="UA" displayName="URINALYSIS, ROUTINE" /> <statusCode code=&quot ;completed" /> <component> <observation moodCode=& quot;EVN" classCode="OBS"> <templateId root=" 2.16.840.1.424288.10.20.22.4.2" /> <id nullFlavor="NA& quot; /> <code codeSystem="local" code="LEUESU& quot; displayName="UA LEUKOCYTE ESTERASE DIPSTICK" /> < statusCode code="completed" /> <effectiveTime value=& quot;304542965250" /> <value unit="" xsi:type=& quot;PQ" value="NEGATIVE" /> <referenceRange> <observationRange> <text>NEGATIVE</text& gt; </observationRange> </referenceRange> </observation> </component> <component> &lt ;observation moodCode="EVN" classCode="OBS"> &lt ;templateId root="2.16.840.1.320166.10.20.22.4.2" /> < id nullFlavor="NA" /> <code codeSystem="local&quot ; code="NITRIU" displayName="UA NITRITE DIPSTICK" /> <statusCode code="completed" /> < effectiveTime value="865845130206" /> <value unit=&quot ;" xsi:type="PQ" value="NEGATIVE" /> < referenceRange> <observationRange> <text> NEGATIVE</text> </observationRange> </ referenceRange> </observation> </component> < component> <observation moodCode="EVN" classCode=" OBS"> <templateId root="2.16.840.1.375932.10.20.22.4.2& quot; /> <id nullFlavor="NA" /> <code codeSystem="local" code="PROTEIU" displayName="UA PROTEIN DIPSTICK" /> <statusCode code="completed" /> <effectiveTime value="238972377163" /> & lt;value unit="" xsi:type="PQ" value="1+" /> <interpretationCode codeSystem="local" code="*" / > <referenceRange> <observationRange> <text>NEGATIVE</text> </observationRange> </referenceRange> </observation> </component& gt; <component> <observation moodCode="EVN" classCode="OBS"> <templateId root=" 2.16.840.1.482552.10.20.22.4.2" /> <idnullFlavor="NA& quot; /> <code codeSystem="local" code="DGLUU&quot ; displayName="UA GLUCOSE DIPSTICK" /> <statusCode code ="completed" /> <effectiveTime value="990332383508 " /> <value unit="" xsi:type="PQ" value= "NEGATIVE" /> <referenceRange> < observationRange> <text>NEGATIVE</text> & lt;/observationRange> </referenceRange> </ observation> </component> <component> < observation moodCode="EVN" classCode="OBS"> < templateId root="2.16.840.1.496745.10.20.22.4.2" /> < id nullFlavor="NA" /> <code codeSystem="local&quot ; code="KETONU" displayName="UA KETONE DIPSTICK" /> <statusCode code="completed" /> <effectiveTime value="230045766748" /> <value unit="" xsi: type="PQ" value="NEGATIVE" /> <referenceRange > <observationRange> <text>NEGATIVE</ text> </observationRange> </referenceRange> </observation> </component> <component> <observation moodCode="EVN" classCode="OBS"> <templateId root="2.16.840.1.794582.10.20.22.4.2" /> <id nullFlavor="NA" /> <code codeSystem=" local" code="UROBILU" displayName="UA UROBILINOGEN DIPSTICK& quot; /> <statusCode code="completed" /> < effectiveTime value="857522020502" /> <value unit=&quot ;" xsi:type="PQ" value="NORMAL" /> < referenceRange> <observationRange> <text> NORMAL</text> </observationRange> </ referenceRange> </observation> </component> < component> <observation moodCode="EVN" classCode=" OBS"> <templateId root="2.16.840.1.763658.10..22.4.2& quot; /> <id nullFlavor="NA" /> <code codeSystem="local" code="BILU" displayName="UA BILIRUBIN DIPSTICK" /> <statusCode code="completed&quot ; /> <effectiveTime value="567862665634" /> <value unit="" xsi:type="PQ" value="NEGATIVE&quot ; /> <referenceRange> <observationRange> <text>NEGATIVE</text> </observationRange> </referenceRange> </observation> </component> <component> <observation moodCode="EVN" classCode=&quot ;OBS"> <templateId root="2.16.840.1.981442.10.20.22.4.2 " /> <id nullFlavor="NA" /> <code codeSystem="local" code="REBECCA" displayName="UA BLOOD DIPSTICK" /> <statusCode code="completed" /> <effectiveTime value="578087225665" /> < value unit="" xsi:type="PQ" value="TRACE" /> <interpretationCode codeSystem="local" code="*" / > <referenceRange> <observationRange> <text>NEGATIVE</text> </observationRange> </referenceRange></observation> </component> <component> <observation moodCode="EVN" classCode=& quot;OBS"> <templateId root=" 2.16.840.1.979938.10.20.22.4.2" /> <id nullFlavor="NA& quot; /> <code codeSystem="local" code="SPGRU&quot ; displayName="UA SPECIFIC GRAVITY" /> <statusCode code ="completed" /> <effectiveTime value="686505897964 " /> <value unit="" xsi:type="PQ" value= "1.005" /> <interpretationCode codeSystem="local&quot ; code="*" /> <referenceRange> < observationRange> <text>1.015-1.025</text> </observationRange> </referenceRange> </ observation> </component> <component> < observation moodCode="EVN" classCode="OBS"> < templateId root="2.16.840.1.936542.10..22.4.2" /> <id nullFlavor="NA" /> <code codeSystem="local" code="EVA" displayName="UR PH" /> < statusCode code="completed" /> <effectiveTime value=& quot;169294457069" /> <value unit="" xsi:type=& quot;PQ" value="6.5" /> <referenceRange> <observationRange> <text>5.0-7.0</text> </observationRange> </referenceRange> </ observation> </component> </organizer> </entry> & lt;entry> <organizer moodCode="EVN" classCode="BATTERY& quot;> <templateId root="2.16.840.1.003018.10.20.22.4.1" /& gt; <id nullFlavor="NA" /> <code codeSystem=" local" code="UAMICRO" displayName="UA MICROSCOPIC" /&gt ; <statusCode code="completed" /> <component> <observation moodCode="EVN" classCode="OBS"> <templateId root="2.16.840.1.797675.10.20.22.4.2" /> <id nullFlavor="NA" /> <code codeSystem=" local" code="BACU" displayName="UA BACTERIA" /> <statusCode code="completed" /> < effectiveTime value="152386750493" /> <value unit=&quot ;" xsi:type="PQ" value="NEGATIVE" /> < referenceRange> <observationRange> <text> NEGATIVE</text> </observationRange> </ referenceRange> </observation> </component> < component> <observation moodCode="EVN" classCode=" OBS"> <templateId root="2.16.840.1.131380.10.20.22.4.2& quot; /> <id nullFlavor="NA"/> <code codeSystem="local" code="EPIU" displayName="UA EPITHELIAL CELLS" /> <statusCode code="completed" /> <effectiveTime value="769456226649" /> & lt;value unit="epi/hpf" xsi:type="PQ" value="1+" / > <referenceRange> <observationRange> <text>0 - 1+</text> </observationRange> </referenceRange> </observation> </component&gt ; <component><observation moodCode="EVN" classCode=&quot ;OBS"> <templateId root="2.16.840.1.595947.10.20.22.4.2 " /> <id nullFlavor="NA" /> <code codeSystem="local" code="MUCUSU" displayName="UA MUCUS& quot; /> <statusCode code="completed" /> & lt;effectiveTime value="136640310184" /> <value unit=& quot;" xsi:type="PQ" value="NEGATIVE" /> & lt;referenceRange> <observationRange> <text& gt;NEG TO 1+</text> </observationRange> </ referenceRange> </observation> </component> < component> <observation moodCode="EVN" classCode=" OBS"> <templateId root="2.16.840.1.159447.10.20.22.4.2& quot; /> <id nullFlavor="NA" /> <code codeSystem="local" code="RBCU" displayName="UA RBC&quot ; /> <statusCode code="completed" /> < effectiveTime value="344070204179" /> <value unit=&quot ;rbc/hpf" xsi:type="PQ" value="0-3" /> < referenceRange> <observationRange> <text> 0 - 3</text> </observationRange> </ referenceRange> </observation> </component> < component> <observation moodCode="EVN" classCode=" OBS"> <templateId root="2.16.840.1.092963.10.20.22.4.2& quot;/> <id nullFlavor="NA" /> <code codeSystem="local"code="TRICHOU" displayName="UA TRICHOMONAS" /> <statusCode code="completed" /&gt ; <effectiveTime value="953875596674" /> < value unit="" xsi:type="PQ" value="NEGATIVE" /&gt ; <referenceRange> <observationRange> <text>NEGATIVE</text> </observationRange> & lt;/referenceRange> </observation> </component> <component> <observation moodCode="EVN" classCode=& quot;OBS"> <templateId root=" 2.16.840.1.697875.10.20.22.4.2" /> <id nullFlavor="NA" /& gt; <code codeSystem="local" code="UAVOL" displayName="UA VOLUME FOR EXAM" /> <statusCode code=& quot;completed" /> <effectiveTime value="425028466547& quot; /> <value unit="mL" xsi:type="PQ" value ="12.0" /> <referenceRange> < observationRange> <text>(12mL STD)</text> </observationRange> </referenceRange> </ observation> </component> <component> < observation moodCode="EVN" classCode="OBS"> < templateId root="2.16.840.1.333395.10.20.22.4.2" /> < idnullFlavor="NA" /> <code codeSystem="local&quot ; code="WBCU"displayName="UA WBC" /> < statusCode code="completed" /> <effectiveTime value=" 631242034264" /> <value unit="wbc/hpf"xsi:type=& quot;PQ" value="0-1" /> <referenceRange> <observationRange> <text>0 - 5</text> </observationRange> </referenceRange> </ observation> </component> <component> < observation moodCode="EVN" classCode="OBS"> < templateId root="2.16.840.1.037020.10.20.22.4.2" /> < id nullFlavor="NA" /> <code codeSystem="local&quot ; code="YEASU" displayName="UA YEAST" /> < statusCode code="completed" /> <effectiveTime value=& quot;568194408810" /> <value unit="" xsi:type=& quot;PQ" value="NEGATIVE" /> <referenceRange> <observationRange> <text>NEGATIVE</text> </observationRange> </referenceRange> < /observation> </component> </organizer> </entry> <entry> <organizer moodCode="EVN" classCode="BATTERY& quot;> <templateId root="2.16.840.1.762272.10.20.22.4.1" /& gt; <id nullFlavor="NA" /> <code codeSystem=" local" code="VRP" displayName="VIRUS RESPIRATORY PROFILE& quot; /> <statusCode code="completed" /> < component> <observation moodCode="EVN" classCode=" OBS"> <templateId root="2.16.840.1.372031.10.20.22.4.2& quot; /> <id nullFlavor="NA" /> <code codeSystem="local" code="MB" displayName="Microbiology& quot; /> <statusCode code="completed" /> & lt;effectiveTime value="358289805816" /> <value xsi: type="ST" value="<pre><b>RESPIRATORY PROFILE</b&gt ; See BelowRESPIRATORY PROFILE(F) Vianey Date/Time: 08/23/2016 16:15 Long Date/Time: // :SOURCE: NASOPHARYNGEALSPEC DESC : See BelowRESPIRATORY PROFILE(F) Vianey Date/Time: 08/23/2016 16:15 VerDate/Time: 08/24/2016 06:54SOURCE: NASOPHARYNGEALSPEC DESC: ADENOVIRUSNOT DETECTEDBORDETELLA PERTUSSISNOT DETECTEDCHLAMYDIA PNEUMONIAENOT DETECTEDCORONAVIRUS 229ENOT DETECTEDCORONAVIRUS [id number] DETECTEDCORONAVIRUS EA93YSC DETECTEDCORONAVIRUS KJ30HAR DETECTEDHUMAN METAPNEUMOVIRUSNOT DETECTEDINFLUENZA A 2008 H1NOT DETECTEDINFLUENZA A H1NOT DETECTEDINFLUENZA A H3NOT DETECTEDINFLUENZA ANOT DETECTEDINFLUENZA BNOT DETECTEDMYCOPLASMA PNEUMONIAENOT DETECTEDPARAINFLUENZA 1NOT DETECTEDPARAINFLUENZA 2NOT DETECTEDPARAINFLUENZA 3NOT DETECTEDPARAINFLUENZA 4NOT DETECTEDRHINOVIRUS/ENTEROVIRUS (Abnormal)DETECTED (Abnormal)RSVNOT DETECTEDPEMBINA [facility] [place] [address]</pre>" / > <referenceRange> <observationRange> <text /> </observationRange> </ referenceRange> </observation> </component> </ organizer> </entry> <entry> <organizer moodCode="EVN " classCode="BATTERY"> <templateId root=" 2.16.840.1.568253.10.20.22.4.1" /> <id nullFlavor="NA&quot ; /> <code codeSystem="local" code="GRAMSP" displayName="GRAM STAIN SPUTUM" /> <statusCode code=" completed" /> <component> <observation moodCode=& quot;EVN" classCode="OBS"> <templateId root=" 2.16.840.1.684754.10.20.22.4.2"/> <id nullFlavor="NA& quot; /> <code codeSystem="local"code="MB" displayName="Microbiology" /> <statusCode code=" completed" /> <effectiveTime value="851808180486" /> <value xsi:type="ST" value="<pre><b&gt ;GRAM STAIN SPUTUM - SPUTUM CULTURE</b> See BelowGRAM STAIN SPUTUM(F) Vianey Date/Time: 08/23/2016 17:27 Long Date/Time: // :SOURCE: SPUTUMSPEC DESC: EXPECTORATEDSee BelowGRAM STAIN SPUTUM(F) Vianey Date/Time: 17:27 Long Date/Time: 08/25/2016 07: 24SOURCE: SPUTUMSPEC DESC: EXPECTORATEDGRAM STAINNO NEUTROPHILS SEENFEW GRAM POSITIVE COCCIMANY GRAM NEGATIVE [address] [address]Lcq BelowSPUTUM CULTURE(F) Vianey Date/Time: 2015 17:27 Long Date/Time: // :SOURCE: SPUTUMSPEC DESC: EXPECTORATEDSee BelowSPUTUM CULTURE(F) Vianey Date/ Time: 08/23/2016 17:27 Long Date/Time: 08/25/2016 07: 24SOURCE: SPUTUMSPEC DESC: EXPECTORATEDCULTURE REPORTNORMAL [address]ORA[address] [address]</pre>" /> & lt;referenceRange> <observationRange> <text /> </observationRange> </referenceRange> & lt;/observation> </component> </organizer> </entry&gt ; <entry> <organizer moodCode="EVN" classCode=" BATTERY"> <templateId root="[id number]& quot; /> <id nullFlavor="NA" /> <code codeSystem ="local" code="CBCD" displayName="CBC W/DIFF" /&gt ; <statusCode code="completed" /> <component> <observation moodCode="EVN" classCode="OBS"> <templateId root="[id number]" /> <id nullFlavor="NA" /> <code codeSystem="local& quot; code="GR#" displayName="GRANULOCYTE #" /> <statusCode code="completed" /> <effectiveTime value ="[id number]" /> <value unit="k/cumm" xsi: type="PQ" value="12.1" /> < interpretationCode codeSystem="local" code="*" /> <referenceRange> <observationRange> < text>2.0-9.0</text> </observationRange> </ referenceRange> </observation> </component> < component> <observation moodCode="EVN" classCode=" OBS"> <templateId root="2.16.840.1.783001.10..22.4.2& quot; /> <id nullFlavor="NA" /> <code codeSystem="local" code="GR%" displayName=" GRANULOCYTE %" /> <statusCode code="completed& quot; /> <effectiveTime value="782189358743" /> <value unit="%" xsi:type="PQ" value="80&quot ; /> <interpretationCode codeSystem="local" code=" *" /> <referenceRange> <observationRange&gt ; <text>50-75</text> </observationRange& gt; </referenceRange> </observation> </ component> <component> <observation moodCode="EVN" classCode="OBS"> <templateId root=" 2.16.840.1.557308.10.20.22.4.2" /> <id nullFlavor="NA& quot; /> <code codeSystem="local" code="LY#" displayName="LYMPHOCYTE #" /> <statusCode code=" completed" /> <effectiveTime value="765405687144" /> <value unit="k/cumm" xsi:type="PQ" value=& quot;2.4" /> <referenceRange> < observationRange> <text>1.0-4.0</text> </ observationRange> </referenceRange> </observation&gt ; </component> <component> <observationmoodCode= "EVN" classCode="OBS"> <templateId root=&quot ;2.16.840.1.605543.10.20.22.4.2" /> <id nullFlavor="NA& quot; /> <code codeSystem="local" code="LY&#37 ;" displayName="LYMPHOCYTE %" /> < statusCode code="completed" /> <effectiveTime value=& quot;097933195369" /> <value unit="%" xsi: type="PQ" value="16" /> <interpretationCode codeSystem="local" code="*"/> <referenceRange > <observationRange> <text>20-30</text > </observationRange> </referenceRange> </observation> </component> <component> & lt;observation moodCode="EVN" classCode="OBS"> & lt;templateId root="2.16.840.1.502469.10.20.22.4.2" /> &lt ;id nullFlavor="NA" /> <code codeSystem="local& quot; code="MCH" displayName="MEAN CELL HGB" /> <statusCode code="completed" /> <effectiveTime value ="902841320796" /> <value unit="pg" xsi:type="PQ " value="31.4" /> <referenceRange> & lt;observationRange> <text>27.0-33.0</text> </observationRange> </referenceRange> </ observation> </component> <component> < observation moodCode="EVN" classCode="OBS"> < templateId root="2.16.840.1.911204.10.20.22.4.2" /> <id nullFlavor="NA" /> <code codeSystem="local" code="MCHC" displayName="MEAN CELL HGB CONCENTRATION" /> <statusCode code="completed" /> < effectiveTime value="550660882732" /> <value unit=&quot ;g/dL" xsi:type="PQ" value="33.3" /> < referenceRange> <observationRange> <text> 32.0-37.0</text> </observationRange> </ referenceRange> </observation></component> < component> <observation moodCode="EVN" classCode=" OBS"> <templateId root="2.16.840.1.940021.10.20.22.4.2& quot; /> <id nullFlavor="NA" /> <code codeSystem="local" code="MCV" displayName="MEAN CELL VOLUME" /> <statusCode code="completed" /> <effectiveTime value="663435821363" /> <value unit="fl" xsi:type="PQ" value="94.3" /> <referenceRange> <observationRange> < text>80.0-100.0</text> </observationRange> & lt;/referenceRange> </observation> </component> <component> <observation moodCode="EVN" classCode=& quot;OBS"> <templateId root=" 2.16.840.1.674149.10..22.4.2" /> <id nullFlavor="NA& quot; /> <code codeSystem="local" code="MO#" displayName="MONOCYTE #" /> <statusCode code=" completed" /> <effectiveTime value="206247724657" /> <value unit="k/cumm"xsi:type="PQ" value=" 0.5" /> <referenceRange> <observationRange& gt; <text>0.1-1.0</text> </ observationRange> </referenceRange> </observation&gt ; </component> <component> <observation moodCode ="EVN" classCode="OBS"> <templateId root=& quot;2.16.840.1.884098.10..22.4.2" /> <id nullFlavor=&quot ;NA" /> <code codeSystem="local" code="MO&amp ;#37;" displayName="MONOCYTE %" /> < statusCode code="completed" /> <effectiveTime value=& quot;541094788313" /> <value unit="%" xsi: type="PQ" value="3" /> <interpretationCode codeSystem="local" code="*" /> < referenceRange> <observationRange> <text> 4-6</text> </observationRange> </ referenceRange> </observation> </component> < component> <observation moodCode="EVN" classCode=" OBS"> <templateId root="2.16.840.1.211219.10.20.22.4.2& quot; /> <id nullFlavor="NA" /> <code codeSystem="local" code="RBC" displayName="RED BLOOD CELL" /> <statusCode code="completed" /> <effectiveTime value="530243044152" /> <value unit="m/cumm" xsi:type="PQ" value="3.66" /> <interpretationCode codeSystem="local" code="*" /& gt; <referenceRange> <observationRange> <text>4.00-6.00</text> </observationRange> </referenceRange> </observation> </component& gt; <component> <observation moodCode="EVN" classCode="OBS"> <templateId root=" 2.16.840.1.674318.10.20.22.4.2" /> <id nullFlavor="NA& quot; /> <code codeSystem="local" code="RDW" displayName="RED CELL DISTRIBUTION WIDTH" /> < statusCode code="completed" /> <effectiveTime value=& quot;151481564804" /> <value unit="%" xsi: type="PQ" value="12.3" /> <referenceRange&gt ; <observationRange> <text>11.0-15.6</ text> </observationRange> </referenceRange> </observation> </component> <component> <observation moodCode="EVN" classCode="OBS"> <templateId root="2.16.840.1.708419.10.20.22.4.2" /> <id nullFlavor="NA" /> <code codeSystem=" local" code="WBC" displayName="WHITE BLOOD CELL" /> <statusCode code="completed" /> < effectiveTime value="030835024502" /> <value unit="k/ cumm" xsi:type="PQ" value="15.1" /> < interpretationCode codeSystem="local" code="*" /> <referenceRange> <observationRange> < text>5.0-10.0</text> </observationRange> </ referenceRange> </observation> </component> < component> <observation moodCode="EVN" classCode=" OBS"> <templateId root="2.16.840.1.356768.10.20.22.4.2& quot; /> <id nullFlavor="NA" /> <code codeSystem="local" code="HGBT" displayName="HEMOGLOBIN& quot; /> <statusCode code="completed" /> & lt;effectiveTime value="701919085546" /> <value unit=& quot;gm/dL" xsi:type="PQ" value="11.5" /> & lt;interpretationCode codeSystem="local" code="*" /> <referenceRange> <observationRange> & lt;text>12.0-16.0</text> </observationRange> </ referenceRange> </observation> </component> < component> <observation moodCode="EVN" classCode=" OBS"> <templateId root="2.16.840.1.347704.10.20.22.4.2& quot; /> <id nullFlavor="NA" /> <code codeSystem="local" code="HCTT" displayName="HEMATOCRIT& quot; /> <statusCode code="completed" /> & lt;effectiveTime value="882388076836" /> <value unit=& quot;%" xsi:type="PQ" value="34.5" /> <interpretationCode codeSystem="local" code="*" /&gt ; <referenceRange> <observationRange> <text>37.0-47.0</text> </observationRange> </referenceRange> </observation> </component&gt ; <component> <observation moodCode="EVN" classCode="OBS"> <templateId root=" 2.16.840.1.946021.10.20.22.4.2" /> <id nullFlavor="NA& quot; /> <code codeSystem="local" code="PLT" displayName="PLATELET COUNT" /> <statusCode code=" completed" /> <effectiveTime value="757877566282" /> <value unit="k/cumm" xsi:type="PQ" value=& quot;275" /> <referenceRange> < observationRange> <text>150-450</text> & lt;/observationRange> </referenceRange> </ observation> </component> </organizer> </entry> & lt;entry> <organizer moodCode="EVN" classCode="BATTERY& quot;> <templateId root="2.16.840.1.822630.10.20.22.4.1" /& gt; <id nullFlavor="NA" /> <code codeSystem=" local" code="PT" displayName="PROTHROMBIN TIME WITH INR&quot ; /> <statusCode code="completed" /> <component&gt ; <observation moodCode="EVN" classCode="OBS"> <templateId root="2.16.840.1.995486.10.20.22.4.2" /> <id nullFlavor="NA" /> <code codeSystem=& quot;local" code="INRX" displayName="INTERNATIONAL NORMAL RATIO" /> <statusCode code="completed" /> <effectiveTime value="047194127992" /> <value unit="" xsi:type="PQ" value="1.0" /> & lt;referenceRange> <observationRange> <text& gt;0.9-1.1</text> </observationRange> </ referenceRange> </observation> </component> < component> <observation moodCode="EVN" classCode=" OBS"> <templateId root="2.16.840.1.361130.10.20.22.4.2& quot; /> <id nullFlavor="NA" /> <code codeSystem="local" code="PTPAT" displayName=" PROTHROMBIN TIME" /> <statusCode code="completed" /> <effectiveTime value="831604721182" /> & lt;value unit="sec" xsi:type="PQ" value="12.0" /& gt; <referenceRange> <observationRange> & lt;text>10.0-12.9</text> </observationRange> </referenceRange> </observation> </component> & lt;/organizer> </entry> <entry> <organizermoodCode=" EVN" classCode="BATTERY"> <templateId root=" 2.16.840.1.825909.10.20.22.4.1" /> <id nullFlavor="NA&quot ; /> <code codeSystem="local" code="METAB" displayName="METABOLIC PANEL, BASIC" /> <statusCode code=& quot;completed" /> <component> <observation moodCode="EVN" classCode="OBS"> <templateId root="2.16.840.1.735558.10.20.22.4.2" /> <id nullFlavor ="NA" /> <code codeSystem="local" code=" K" displayName="POTASSIUM" /> <statusCode code=& quot;completed" /> <effectiveTime value="890156171196& quot; /> <value unit="mmol/L" xsi:type="PQ" value=& quot;4.2" /> <referenceRange> < observationRange> <text>3.5-5.3</text> & lt;/observationRange> </referenceRange> </ observation> </component> <component> < observation moodCode="EVN" classCode="OBS"> < templateId root="2.16.840.1.604883.10.20.22.4.2" /> <id nullFlavor="NA" /> <code codeSystem="local" code="eGFR" displayName="EST GFR (MDRD)" /> < statusCode code="completed" /> <effectiveTime value=& quot;527365342819" /> <value unit="mL/min" xsi: type="PQ" value="53" /> <interpretationCode codeSystem="local" code="*" /> < referenceRange> <observationRange> <text>> 59 </text> </observationRange> </referenceRange& gt; </observation> </component> <component> <observation moodCode="EVN" classCode="OBS"> &lt ;templateId root="2.16.840.1.387310.10.20.22.4.2" /> < id nullFlavor="NA" /> <code codeSystem="local&quot ; code="GAP" displayName="ANION GAP" /> < statusCode code="completed" /> <effectiveTime value=& quot;989858004391" /> <value unit="mmol/L" xsi: type="PQ" value="12" /> <referenceRange> <observationRange> <text>5-15</text> </observationRange> </referenceRange> &lt ;/observation> </component> <component> < observation moodCode="EVN" classCode="OBS"> < templateId root="2.16.840.1.328367.10.20.22.4.2" /> < id nullFlavor="NA" /> <code codeSystem="local" code="eCrCl" displayName="EST CrCl (CG)" /> < statusCode code="completed" /> <effectiveTime value=& quot;938636779290" /> <value unit="mL/min" xsi: type="PQ" value="43" /> <interpretationCode codeSystem="local" code="*" /> < referenceRange> <observationRange> <text> > 59</text> </observationRange> </ referenceRange></observation> </component> < component> <observation moodCode="EVN" classCode=" OBS"> <templateId root="2.16.840.1.691610.10.20.22.4.2& quot; /> <id nullFlavor="NA" /> <code codeSystem="local" code="GLU" displayName="GLUCOSE&quot ; /> <statusCode code="completed" /> < effectiveTime value="473118285872" /> <value unit="mg/dL& quot; xsi:type="PQ" value="126" /> < interpretationCode codeSystem="local" code="*" /> <referenceRange> <observationRange> < text>70-99</text> </observationRange> </ referenceRange> </observation> </component> < component> <observation moodCode="EVN" classCode=" OBS"> <templateId root="2.16.840.1.133827.10.20.22.4.2& quot; /> <id nullFlavor="NA" /> <code codeSystem="local" code="CA" displayName="CALCIUM&quot ; /> <statusCode code="completed" /> < effectiveTime value="227511605656" /> <value unit=&quot ;mg/dL" xsi:type="PQ" value="11.2" /> < interpretationCode codeSystem="local" code="*" /> <referenceRange> <observationRange> < text>8.5-10.1</text> </observationRange> < /referenceRange> </observation> </component> &lt ;component> <observation moodCode="EVN" classCode=" OBS"> <templateId root="2.16.840.1.216036.10.20.22.4.2& quot; /> <id nullFlavor="NA" /><code codeSystem=& quot;local" code="BUN" displayName="BLOOD UREA NITROGEN&quot ; /> <statusCode code="completed" /> < effectiveTime value="184595692156" /> <value unit=&quot ;mg/dL" xsi:type="PQ" value="21" /> < interpretationCode codeSystem="local" code="*" /> <referenceRange> <observationRange> < text>7-20</text> </observationRange> </ referenceRange> </observation> </component> < component> <observation moodCode="EVN" classCode=" OBS"> <templateId root="2.16.840.1.883564.10.20.22.4.2& quot; /> <id nullFlavor="NA" /> <code codeSystem="local" code="CREAT" displayName="CREATININE " /> <statusCode code="completed" /> & lt;effectiveTime value="297268742595" /> <value unit=& quot;mg/dL" xsi:type="PQ" value="1.2" /> & lt;interpretationCode codeSystem="local" code="*" /> <referenceRange> <observationRange> &lt ;text>0.6-1.0</text> </observationRange> < /referenceRange> </observation> </component> &lt ;component> <observation moodCode="EVN" classCode=" OBS"> <templateId root="2.16.840.1.830825.10..22.4.2& quot; /> <id nullFlavor="NA" /> <code codeSystem="local" code="NA" displayName="SODIUM" /> <statusCode code="completed" /> < effectiveTime value="102845877139" /> <value unit=&quot ;mmol/L" xsi:type="PQ" value="141" /> < referenceRange> <observationRange> <text> 135-148</text> </observationRange> </referenceRange& gt; </observation> </component> <component> <observation moodCode="EVN" classCode="OBS"> <templateId root="2.16.840.1.172582.10..22.4.2" /> <id nullFlavor="NA" /> <code codeSystem=" local" code="CL" displayName="CHLORIDE" /> <statusCode code="completed" /> <effectiveTime value ="731966456496" /> <value unit="mmol/L" xsi: type="PQ" value="103" /> <referenceRange> <observationRange> <text>98-110</text> </observationRange> </referenceRange> </ observation> </component> <component> < observation moodCode="EVN" classCode="OBS"> < templateId root="2.16.840.1.381622.10.20.22.4.2" /> < id nullFlavor="NA" /> <code codeSystem="local&quot ; code="CO2" displayName="CARBON DIOXIDE" /> &lt ;statusCode code="completed" /> <effectiveTime value=& quot;056054443446" /> <value unit="mmol/L" xsi: type="PQ" value="26" /> <referenceRange> <observationRange> <text>21-32</text> </observationRange> </referenceRange> & lt;/observation> </component> </organizer> </entry&gt ; <entry> <organizer moodCode="EVN" classCode=" BATTERY"> <templateId root="2.16.840.1.129410.10.20.22.4.1& quot; /> <id nullFlavor="NA" /> <code codeSystem ="local" code="MAG" displayName="MAGNESIUM" /> <statusCode code="completed" /> <component> <observation moodCode="EVN" classCode="OBS"> <templateId root="2.16.840.1.444904.10.20.22.4.2" /> <id nullFlavor="NA" /> <code codeSystem=" local" code="MAG" displayName="MAGNESIUM" /> <statusCode code="completed" /> <effectiveTime value="292673863752" /> <value unit="mg/dL" xsi:type="PQ" value="2.1" /> <referenceRange& gt; <observationRange> <text>1.8-2.4</ text> </observationRange> </referenceRange> &lt ;/observation> </component> </organizer> </entry> <entry> <organizer moodCode="EVN" classCode=" BATTERY"> <templateId root="2..840.1.924120.10.20.22.4.1& quot; /> <id nullFlavor="NA" /> <code codeSystem ="local"code="METAB" displayName="METABOLIC PANEL, BASIC" /> <statusCode code="completed" /> < component> <observation moodCode="EVN" classCode=" OBS"> <templateId root="..840.1.726243.10.20.22.4.2& quot; /> <id nullFlavor="NA" /> <code codeSystem="local" code="K" displayName="POTASSIUM&quot ; /> <statusCode code="completed" /> < effectiveTime value="267382988119" /> <value unit=&quot ;mmol/L" xsi:type="PQ" value="4.4" /> < referenceRange> <observationRange> <text> 3.5-5.3</text> </observationRange> </ referenceRange> </observation> </component> < component> <observation moodCode="EVN" classCode=" OBS"> <templateId root="20.1.185467.10.20.22.4.2& quot; /> <id nullFlavor="NA" /> <code codeSystem="local" code="eGFR" displayName="EST GFR ( MDRD)" /> <statusCode code="completed" /> <effectiveTime value="628364835034" /> <value unit="mL/min" xsi:type="PQ" value="53" /> <interpretationCode codeSystem="local" code="*" /&gt ; <referenceRange> <observationRange> <text>> 59</text> </observationRange> </referenceRange> </observation> </component> <component> <observation moodCode="EVN" classCode=& quot;OBS"> <templateId root=" 2.16.840.1.018401.10.20.22.4.2" /> <id nullFlavor="NA& quot; /> <code codeSystem="local" code="GAP" displayName="ANION GAP" /> <statusCode code=" completed" /> <effectiveTime value="077890871953" /> <value unit="mmol/L" xsi:type="PQ" value=& quot;9" /> <referenceRange> < observationRange> <text>5-15</text> </ observationRange> </referenceRange> </observation&gt ; </component> <component> <observation moodCode ="EVN" classCode="OBS"> <templateId root=& quot;2.16.840.1.537341.10.20.22.4.2" /> <id nullFlavor=&quot ;NA" /> <code codeSystem="local" code="eCrCl& quot; displayName="EST CrCl (CG)" /> <statusCode code=& quot;completed" /> <effectiveTime value="120052543191& quot; /> <value unit="mL/min" xsi:type="PQ" value="43" /> <interpretationCode codeSystem=" local" code="*" /> <referenceRange> <observationRange> <text>> 59</text> </observationRange> </referenceRange> </ observation> </component> <component> < observation moodCode="EVN" classCode="OBS"> < templateId root="2.16.840.1.739858.10.20.22.4.2" /> < id nullFlavor="NA" /> <code codeSystem="local&quot ; code="GLU" displayName="GLUCOSE" /> < statusCode code="completed" /> <effectiveTime value=& quot;547337239338" /> <value unit="mg/dL" xsi:type ="PQ" value="125" /> < interpretationCodecodeSystem="local" code="*" /> <referenceRange> <observationRange> < text>70-99</text> </observationRange> </ referenceRange> </observation> </component> < component> <observation moodCode="EVN" classCode=" OBS"> <templateId root="2.16.840.1.135229.10.20.22.4.2& quot; /> <id nullFlavor="NA" /> <code codeSystem="local" code="CA" displayName="CALCIUM&quot ; /> <statusCode code="completed" /> < effectiveTime value="745641124996" /> <value unit=&quot ;mg/dL" xsi:type="PQ" value="10.7" /> < interpretationCode codeSystem="local" code="*" /> <referenceRange> <observationRange> < text>8.5-10.1</text> </observationRange> < /referenceRange> </observation> </component> < component> <observation moodCode="EVN" classCode=" OBS"> <templateId root="2.16.840.1.769726.10.20.22.4.2& quot; /> <id nullFlavor="NA" /> <code codeSystem="local" code="BUN" displayName="BLOOD UREA NITROGEN" /> <statusCode code="completed" /> <effectiveTime value="511861023696" /> < value unit="mg/dL" xsi:type="PQ" value="29" /> <interpretationCode codeSystem="local" code="*&quot ; /> <referenceRange> <observationRange> <text>7-20</text> </observationRange> </referenceRange> </observation> </component> <component> <observation moodCode="EVN" classCode= "OBS"> <templateId root=" 2.16.840.1.908842.10.20.22.4.2" /> <id nullFlavor="NA" /& gt; <code codeSystem="local" code="CREAT" displayName="CREATININE" /> <statusCode code=" completed" /> <effectiveTime value="240993345689" /> <value unit="mg/dL" xsi:type="PQ" value=& quot;1.2" /> <interpretationCode codeSystem="local&quot ; code="*" /> <referenceRange> < observationRange> <text>0.6-1.0</text> & lt;/observationRange> </referenceRange> </observation& gt; </component> <component> <observation moodCode="EVN" classCode="OBS"> <templateId root="2.16.840.1.775127.10.20.22.4.2" /> <id nullFlavor ="NA" /> <code codeSystem="local" code=" NA" displayName="SODIUM" /> <statusCode code=&quot ;completed" /> <effectiveTime value="516220311741&quot ; /> <value unit="mmol/L" xsi:type="PQ" value ="140" /> <referenceRange> < observationRange> <text>135-148</text> </ observationRange> </referenceRange> </observation&gt ; </component> <component> <observation moodCode ="EVN" classCode="OBS"> <templateId root=& quot;2.16.840.1.650172.10.20.22.4.2" /> <id nullFlavor=&quot ;NA" /> <code codeSystem="local" code="CL& quot; displayName="CHLORIDE" /> <statusCode code=" completed" /> <effectiveTime value="060226781738" /> <value unit="mmol/L" xsi:type="PQ" value=& quot;104" /> <referenceRange> < observationRange> <text>98-110</text> &lt ;/observationRange> </referenceRange> </observation& gt; </component> <component> <observation moodCode="EVN" classCode="OBS"> <templateId root="2.16.840.1.490749.10.20.22.4.2" /> <id nullFlavor ="NA" /> <code codeSystem="local" code=" CO2" displayName="CARBON DIOXIDE" /> <statusCode code="completed" /> <effectiveTime value=" 560343541242" /><value unit="mmol/L" xsi:type="PQ&quot ; value="27" /> <referenceRange> < observationRange> <text>21-32</text> </ observationRange> </referenceRange> </observation&gt ; </component> </organizer> </entry> <entry> <organizer moodCode="EVN" classCode="BATTERY"> <templateId root="2.16.840.1.515934.10.20.22.4.1" /> < id nullFlavor="NA" /> <code codeSystem="local" code="CBC" displayName="CBC" /> <statusCode code= "completed" /> <component> <observation moodCode="EVN" classCode="OBS"> <templateId root="2.16.840.1.250630.10.20.22.4.2" /> <id nullFlavor ="NA" /> <code codeSystem="local" code=" MCH" displayName="MEAN CELL HGB" /> <statusCode code="completed" /> <effectiveTime value=" 115079454041" /> <value unit="pg" xsi:type=" PQ" value="30.8" /> <referenceRange> <observationRange> <text>27.0-33.0</text> </observationRange> </referenceRange> </ observation> </component> <component> < observation moodCode="EVN" classCode="OBS"> < templateId root="2.16.840.1.041310.10.20.22.4.2" /> < id nullFlavor="NA" /> <code codeSystem="local&quot ; code="MCHC" displayName="MEAN CELL HGB CONCENTRATION" /&gt ; <statusCode code="completed" /> < effectiveTime value="520482400345" /> <value unit=&quot ;g/dL" xsi:type="PQ" value="32.0" /> < referenceRange> <observationRange> <text> 32.0-37.0</text> </observationRange> </ referenceRange> </observation> </component> < component> <observation moodCode="EVN" classCode=" OBS"><templateId root="2.16.840.1.508223.10.20.22.4.2" /&gt ; <id nullFlavor="NA" /> <code codeSystem=& quot;local" code="MCV" displayName="MEAN CELL VOLUME" / > <statusCode code="completed" /> < effectiveTime value="971445517174" /> <value unit=&quot ;fl" xsi:type="PQ" value="96.3" /> < referenceRange> <observationRange> <text> 80.0-100.0</text> </observationRange> </ referenceRange> </observation> </component> < component> <observation moodCode="EVN" classCode="OBS "> <templateId root="2.16.840.1.475068.10.20.22.4.2& quot; /> <id nullFlavor="NA" /> <code codeSystem="local" code="RBC" displayName="RED BLOOD CELL" /> <statusCode code="completed" /> <effectiveTime value="888025431053" /> <value unit="m/cumm" xsi:type="PQ"value="3.54" /> <interpretationCode codeSystem="local" code="*" /& gt; <referenceRange> <observationRange> <text>4.00-6.00</text> </observationRange> </referenceRange> </observation> </component&gt ; <component> <observation moodCode="EVN" classCode="OBS"> <templateId root=" 2.16.840.1.632559.10.20.22.4.2" /> <id nullFlavor="NA& quot; /> <code codeSystem="local" code="RDW" displayName="RED CELL DISTRIBUTION WIDTH" /> <statusCode code="completed" /> <effectiveTime value=" 223978296745" /> <value unit="%" xsi:type= "PQ" value="12.7" /> <referenceRange> <observationRange> <text>11.0-15.6</text&gt ; </observationRange> </referenceRange> & lt;/observation> </component> <component> < observation moodCode="EVN" classCode="OBS"> < templateId root="2.16.840.1.783125.10.20.22.4.2" /> < id nullFlavor="NA" /> <code codeSystem="local&quot ; code="WBC" displayName="WHITE BLOOD CELL" />< statusCode code="completed" /> <effectiveTime value=& quot;125129162115" /> <value unit="k/cumm" xsi: type="PQ" value="15.9"/> <interpretationCode codeSystem="local" code="*" /><referenceRange> <observationRange> <text>5.0-10.0</text> </observationRange> </referenceRange> & lt;/observation> </component> <component> < observation moodCode="EVN" classCode="OBS"> < templateId root="2.16.840.1.812796.10.20.22.4.2" /> < id nullFlavor="NA" /> <code codeSystem="local&quot ; code="HGBT" displayName="HEMOGLOBIN" /> < statusCode code="completed" /> <effectiveTime value=& quot;[id number]" /> <value unit="gm/dL" xsi:type ="PQ" value="10.9" /> <interpretationCode codeSystem="local" code="*" /> < referenceRange> <observationRange> <text>12.0-16.0& lt;/text> </observationRange> </referenceRange& gt; </observation> </component> <component> <observation moodCode="EVN" classCode="OBS"> <templateId root="[id number]" /> & lt;id nullFlavor="NA" /> <code codeSystem="local& quot; code="HCTT" displayName="HEMATOCRIT" /> & lt;statusCode code="completed" /> <effectiveTime value= "[id number]" /> <value unit="%" xsi :type="PQ" value="34.1" /> < interpretationCode codeSystem="local" code="*" /> <referenceRange> <observationRange> <text >37.0-47.0</text> </observationRange> </ referenceRange> </observation> </component> < component> <observation moodCode="EVN" classCode=" OBS"> <templateId root="[id number]& quot; /> <id nullFlavor="NA" /><code codeSystem=& quot;local" code="PLT" displayName="PLATELET COUNT" /& gt; <statusCode code="completed" /> < effectiveTime value="[id number]" /> <value unit=&quot ;k/cumm" xsi:type="PQ" value="244" /> < referenceRange> <observationRange> <text> 150-450</text> </observationRange> </ referenceRange> </observation> </component> </ organizer> </entry></section> Encounters ACCT No. Visit Discharge Status Pt. Type Provider Facility Loc./Unit Complaint Date/Time [id number] 12/15/2013 12/15/2013 CLS Emergency Other [facility] 2 14:44:00 23:59:59 Doctor [facility] on [address] [id number] 08/23/2016 08/26/2016 DIS Inpatient Robin GarciaT2 29 01:22:00 13:10:00 , [facility]
[2017-12-22] MEDS ORDERED: ALBUTEROL/IPRATROPIUM 2.5mg-0.5mg/3ml NEB AEROSOL ONE (16:56)
[2017-12-22] MEDS ORDERED: METHYLPREDNISOLONE SOD SUCC 125mg/2ml INJECTION IVP ONE (16:56)
--- NOTE | 2017-12-22 17:00 | Emergency Department Report ---
SOB HPI - General Chief Complaint: Shortness of Breath/Dyspnea Stated Complaint: Diff breath, spitting up blood Time Seen by Provider: 12/22/17 16:50 Source: patient, family Mode of arrival: ambulatory Limitations: no limitations - History of Present Illness Pt presents with a c/o SOA and intermittent fever since June. She presents today as she feels it has gotten progressively worse in nature. She has had 2 episodes of vomiting today, reports coughing up blood tinged thin sputum. She c/ o weakness and general malaise. Denies chest pain. She reports a history of COPD that she takes Brio for but has had minimal relief and continues to smoke about a half pack per day. MD Complaint: shortness of breath, cough Onset (ago): month(s) Severity: moderate Consistency/Duration: intermittent Relieving factors: nothing Exacerbating factors: lying flat, exertion, movement, coughing Known history of: COPD Associated symptoms: fever, cough, wheezing, sputum production, nausea/vomiting - Related Data Home Medications Medication Instructions Recorded Confirmed Nitroglycerin [Nitrostat] 0.4 mg PO Q5MIN PRN #0 05/19/16 12/22/17 Atorvastatin Calcium 20 mg PO HS #0 05/31/16 12/22/17 apixaban (Eliquis)5 mg tablet 5 mg PO BID 04/09/17 12/22/17 ALPRAZolam [Xanax 0.25 mg] 0.25 mg PO BID PRN 12/22/17 12/22/17 Albuterol Neb (0.083%) [Proventil 1 vial INH Q4H PRN 12/22/17 12/22/17 Neb (0.083%)] Albuterol Sulfate [Proventil Hfa 2 puff INH QID 12/22/17 12/22/17 90mcg] Benzonatate [Tessalon Perle] 1 cap PO TID PRN 12/22/17 12/22/17 Cholecalciferol (Vitamin D3) 2,000 unit PO DAILY 12/22/17 12/22/17 [Vitamin D3] Citalopram [Celexa] 20 mg PO DAILY 12/22/17 12/22/17 Fluticasone/Vilanterol Inhaler 1 puff INH DAILY 12/22/17 12/22/17 [Breo Ellipta 100-25 mcg Inhaler] Isosorbide Dinitrate 15 mg PO DAILY 12/22/17 12/22/17 Losartan [Cozaar] 100 mg PO DAILY 12/22/17 12/22/17 Metoprolol Succinate 50 mg PO DAILY 12/22/17 12/22/17 Pantoprazole Tab [Protonix Tab] 40 mg PO DAILY 12/22/17 12/22/17 Allergies Allergy/AdvReac Type Severity Reaction Status Date / Time aspirin AdvReac Unknown STOMACH Verified 12/22/17 16:05 UPSET hydrocodone AdvReac Unknown VOMITING Verified 12/22/17 16:05 Review of Systems All systems: reviewed and negative except as stated Constitutional: Reports: as per HPI Respiratory: Reports: as per HPI Gastrointestinal: Reports: as per HPI PFSH Patient Stated Medical History Cataracts Yes Heart Murmur Yes Hypertension Yes Myocardial Infarction Yes: HX OF Chronic Obstructive Pulmonary Yes Disease (COPD) Pneumonia Yes Gastroesophageal Reflux Yes Disease Hx Urinary Tract Infection Yes: CHRONIC Clotting Problems Yes: HX OF Depression Yes Clinic Medical History (Last Updated 12/03/17 @ 09:17 by Karli Brian LPN) COPD (chronic obstructive pulmonary disease) (Chronic Medical) CAD (coronary artery disease) (Chronic Medical) Depression (Chronic Medical) Hypertension (Chronic Medical) LVH (left ventricular hypertrophy) (Chronic Medical) DVT (deep venous thrombosis) (Resolved Medical) Family History: Family History Mother Diabetes High blood pressure Father Coronary artery disease High blood pressure Diabetes Congestive heart failure Myocardial infarction Daughter High blood pressure - Social History Smoking status: Former smoker Physical Exam - Limitations Limitations: no limitations - General General appearance: alert, in no apparent distress - Normal Exams: Head:: Normocephalic without trauma Eyes:: Pupils are PERRLA w/ EOMI Neck:: Full range of motion, without adenopathy Cardiovascular:: Regular rate and rhythm, without murmur or gallop, Pulses 2+ all extremities, capillary refill, <2 seconds all extremities Abdomen:: Bowel sounds positive, soft, non-tender, non-distended Musculoskeletal:: No tenderness, or deformity noted, good range of motion, all extremities Integumentary:: No rashes Neurological:: Patient is alert, and oriented, cranial nerves, motor/sensory/ cerebellar, exams w/o gross deficits, to observation Psychiatric:: Patient exhibits, appropriate attention, emotion and affect - Expanded Respiratory Exam Location: Left: wheezes, Right: wheezes, Lower: wheezes Course Vital Signs Temperature 99.8 F 12/22/17 15:34 Pulse Rate 89 12/22/17 15:34 Respiratory Rate 20 12/22/17 15:34 Blood Pressure 157/67 H 12/22/17 15:34 Pulse Oximetry 93 12/22/17 15:34 Temperature 99.8 F 12/22/17 15:34 Pulse Rate 89 12/22/17 15:34 Respiratory Rate 22 12/22/17 17:31 Blood Pressure 157/67 H 12/22/17 15:34 Pulse Oximetry 94 12/22/17 17:31 Shortness of Breath/Dyspnea - MDM Narrative Medical decision making narrative: Lab and Xray results discussed with pt and family. Blood cultures obtained and antibiotics started. Dr Washington notified for need for admission and would like a D Dimer added to pt order. Lab ordered pt to be admitted under him. - Differential Diagnosis Likely: acute exacerbation of chronic obstructive airways disease, congestive heart failure, community acquired pneumonia (influenza) - Lab Data Attestation: I reviewed the patient's lab results. Result diagrams: 12/22/17 18:02 12/22/17 18:02 Lab Results 12/22/17 12/22/17 12/22/17 Range/Units 18:02 18:02 18:02 WBC 18.9 H (4.5-11.0) T/MM3 RBC 3.88 L (4.00-5.20) M/MM3 Hgb 11.8 L (12-16) GM/DL Hct 36.9 (36-46) % MCV 95.1 (80-100) UM3 MCH 30.4 (26-34) UUG MCHC 32.0 (31-37) GM/DL RDW Std Deviation 44.1 (36.9-50.2) FL Plt Count 189 (130-400) T/MM3 MPV 10.0 (9.4-12.4) UM3 Immature Gran % (Auto) Not performed Neut % (Auto) Not performed Lymph % (Auto) Not performed [place] % (Auto) Not performed Eos % (Auto) Not performed Baso % (Auto) Not performed Neut # (Auto) Not performed Lymph # (Auto) Not performed [place] # (Auto) Not performed Eos # (Auto) Not performed Baso # (Auto) Not performed Abs Immat Gran (auto) Not performed Neutrophils % (Manual) 84.0 H (33-66) % Lymphocytes % (Manual) 13.0 L (23-45) % Monocytes % (Manual) 3.0 (0-9.0) % Neutrophils # (Manual) 15.9 H (1.8-7.7) T/MM3 Lymphocytes # (Manual) 2.5 (1-4.8) T/MM3 Monocytes # (Manual) 0.6 (0-0.8) T/MM3 RBC Morph Comment Normal Turbidity < 20 (0-20) Sodium 142 (134-144) MEQ/L Potassium 3.5 L (3.6-5) MEQ/L Chloride 101 (98-107) MEQ/L Carbon Dioxide 27 (22-30) MEQ/L Anion Gap 14 (5-15) MEQ/L BUN 15.0 (7-17) MG/DL Creatinine 0.9 (0.7-1.2) MG/DL GFR Calculation 61 BUN/Creatinine Ratio 17 (6-26) RATIO Glucose 139 H (65-110) MG/DL Calculated Osmolality 276 (261-280) MOSM/KG Calcium 11.0 H (8.4-10.2) MG/DL Total Bilirubin 2.30 H (0.20-1.30) MG/DL Icterus Index < 2 (0-7) AST 27 (14-36) U/L ALT 32 (9-52) U/L Alkaline Phosphatase 97 (38-126) U/L Total Protein 8.4 H (6.3-8.2) G/DL Albumin 4.5 (3.5-5.0) G/DL Globulin 3.9 H (2.4-3.6) G/DL Albumin/Globulin Ratio 1.2 (1.1-2.2) RATIO Specimen Hemolysis < 15 (0-25) Influenza Type A (PCR) Negative (Negative) Influenza Type B (PCR) Negative (Negative) - Radiology Data Attestation: I reviewed the patient's radiology results. (read per Dr Webb with Right upper lobe consolidation) Disposition Clinical Impression: Community acquired pneumonia Qualifiers: Laterality: right Lung location: upper lobe of lung Qualified Code(s): J18.1 - Lobar pneumonia, unspecified organism Disposition: 02 To [facility] [place] Care Condition: Stable Prescriptions: No Action Cholecalciferol (Vitamin D3) [Vitamin D3] 2,000 unit PO DAILY Benzonatate [Tessalon Perle] 1 cap PO TID PRN PRN Reason: Cough Pantoprazole Tab [Protonix Tab] 40 mg PO DAILY Metoprolol Succinate 50 mg PO DAILY Isosorbide Dinitrate 15 mg PO DAILY Citalopram [Celexa] 20 mg PO DAILY Fluticasone/Vilanterol Inhaler [Breo Ellipta 100-25 mcg Inhaler] 1 puff INH DAILY ALPRAZolam [Xanax 0.25 mg] 0.25 mg PO BID PRN PRN Reason: Anxiety Albuterol Sulfate [Proventil Hfa 90mcg] 2 puff INH QID Albuterol Neb (0.083%) [Proventil Neb (0.083%)] 1 vial INH Q4H PRN PRN Reason: Wheezing Nitroglycerin [Nitrostat] 0.4 mg PO Q5MIN PRN #0 PRN Reason: CHEST PAIN Atorvastatin Calcium 20 mg PO HS #0 Losartan [Cozaar] 100 mg PO DAILY apixaban (Eliquis)5 mg tablet 5 mg PO BID Referrals: Jose Angel Blakely MD [Family Provider] - Time of Disposition: 19:10 - Seen By: mariela
[2017-12-22] MEDS: SALINE FLUSH 10ml SYRINGE IVF PRN (18:15)
[2017-12-22] MEDS ORDERED: LEVOFLOXACIN PB 500 MG/100 ML BAG IV SCH (19:00)
[2017-12-22] MEDS ORDERED: IOHEXOL 350mg/ml 100ml INJECTION ONE (20:43)
[2017-12-22] MEDS ORDERED: SALINE FLUSH 10ml SYRINGE ONE (20:43)
[2017-12-22] MEDS ORDERED: BENZONATATE 100 MG CAPSULE PO PRN (21:10)
[2017-12-22] MEDS ORDERED: ALBUTEROL 2.5mg/3ml (0.083%) NEB AEROSOL PRN (21:10)
[2017-12-22] MEDS ORDERED: NITROGLYCERIN 0.4 MG SUBLINGUAL TABLET SL PRN (21:10)
[2017-12-22 21:41] VITALS: BMI 32.1
[2017-12-22] MEDS: ACETAMINOPHEN 500 MG TABLET PO PRN (21:59)
[2017-12-22] MEDS: ENOXAPARIN 80 MG/0.8 ML INJECTION SQ SCH (22:11)
[2017-12-23] MEDS: ACETAMINOPHEN 500 MG TABLET PO PRN ×3 (03:36→22:46)
[2017-12-23] MEDS ORDERED: INFLUENZA VAC High Dose 2017-18 (Fluzone HD*) (>=65yo) 0.5ml IM ONE (05:12)
--- NOTE | 2017-12-23 08:52 | XRay Report ---
INDICATION: Diff breathing, Hx COPD PROCEDURE: CHEST 2-VIEWS UPRIGHT (PA & LAT) Encounter: Initial COMPARISON: CT angiogram of the chest from the same date FINDINGS: Dense consolidation in the right upper lobe. Left lung is clear. There is no pleural effusion or pneumothorax. The heart size, mediastinal contours and pulmonary vascularity are within normal limits. There is no significant skeletal abnormality. IMPRESSION: Right upper lobar pneumonia. .
[2017-12-23] MEDS: ENOXAPARIN 80 MG/0.8 ML INJECTION SQ SCH ×2 (08:56→20:57)
[2017-12-23] MEDS: SALINE FLUSH 10ml SYRINGE IVF PRN ×2 (08:56→20:57)
[2017-12-23] MEDS: ISOSORBIDE DINITRATE 10 MG PO SCH (08:57)
[2017-12-23] MEDS: CITALOPRAM 20 MG TABLET PO SCH (08:57)
[2017-12-23] MEDS: --POM--LOSARTAN 100 MG TABLET PO SCH (08:57)
[2017-12-23] MEDS: CEFTRIAXONE 1 G in NS 50 ML IV SCH (08:57)
[2017-12-23] MEDS: METOPROLOL SUCCINATE 50 MG PO SCH (08:59)
[2017-12-23] MEDS: NS FLUSH BAG 500ml IV PRN (09:02)
[2017-12-23] MEDS: AZITHROMYCIN IV 500 MG in NS 250ml 250 ML IV SCH (09:51)
--- NOTE | 2017-12-23 13:02 | History and Physical ---
CHIEF COMPLAINT Shortness of breath. Coughing up blood. Weakness. HISTORY OF PRESENT ILLNESS The patient is a 77-year-old female who presented to [facility] Emergency Room today with a chief complaint of progressively worsening shortness of breath over the last five months. Over the last couple of weeks it has been just getting worse, having difficulty breathing. Lately she has been coughing more so and now with blood-tinged sputum production. She says this is reminiscent of symptoms when she had a PE in the past. She has had a PE twice with similar symptoms. Now she complains of generalized weakness and malaise. She is having difficulty moving around. She has known history of COPD as well. She was thinking that maybe this is just part of her COPD and would eventually get to my office to see me. I have not seen her for quite some time. This is the first time I have seen Natali since her roughly about six months ago. She denies any chest pain or palpitations. She has been having chills off and on over the last several months as well. REVIEW OF SYSTEMS Denies blurry vision, diplopia, chest pain, palpitations. She does complain of shortness of breath, coughing with blood-tinged sputum production as mentioned above. She does have fever and chills off and on as well. She denies nausea or vomiting. No diarrhea. No abdominal pain. No back pain. Denies TIA or CVA symptoms at this time. PAST MEDICAL HISTORY 1. Hypertension. 2. Myocardial infarction. 3. COPD. 4. Pulmonary embolism x 2. 5. Depression. 6. GERD. 7. Pneumonia. 8. Cataract surgery. 9. LVH. FAMILY HISTORY Hypertension. Diabetes mellitus. Coronary artery disease. Congestive heart failure. SOCIAL HISTORY The patient is a . She used to smoke. I think she quit smoking a few years ago. She typically uses oxygen in the evening but has not used oxygen in the last few weeks or so. CURRENT MEDICATIONS 1. Nitroglycerin p.r.n. 2. Atorvastatin 20 mg at bedtime. 3. Eliquis 5 mg one tablet p.o. b.i.d. 4. Xanax 0.25 mg p.o. b.i.d. 5. Albuterol p.r.n. 6. Tessalon Perles one capsule p.o. t.i.d. p.r.n. 7. Vitamin D3 2000 units one tablet daily. 8. Celexa 20 mg one tablet daily. 9. Breo 100/25 mcg one puff once a day. 10. Isosorbide dinitrate 15 mg one tablet daily. 11. Cozaar 100 mg one tablet daily. 12. Metoprolol 50 mg one tablet daily. 13. Protonix 40 mg one tablet daily. ALLERGIES Aspirin. Hydrocodone. PHYSICAL EXAM GENERAL: The patient is very dyspneic. VITAL SIGNS: Temperature 99.8, pulse 83, respirations 22, blood pressure 139/ 62. Oxygen saturation 95% on 2 L/nasal cannula. NECK: Supple. CHEST: Lungs have decreased breath sounds and rales in the right upper lobe region. CARDIOVASCULAR: Regular rate and rhythm. No murmur at this time. ABDOMEN: Soft, nontender. No mass is palpable. EXTREMITIES: No cyanosis, clubbing or edema. NEUROLOGIC: Grossly intact. No focal neurologic deficit. Patient is awake, alert and oriented x 3. LABORATORY WBC 18.9, hemoglobin 11.8. D-dimer 413. Potassium 3.5, glucose 139, calcium 11, total bilirubin 2.30. Influenza A and B are negative. IMAGING Chest x-ray has been reviewed by myself. There is lingular consolidation in the right middle lobe. There also looks like a wedge consolidation which can be suspicious for pulmonary embolism. ASSESSMENT 1. Progressively worsening dyspnea. Differential diagnosis is pneumonia versus PE. 2. Right upper and lower lobe pneumonia. 3. Generalized weakness. 4. Hemoptysis. 5. COPD with gradual exacerbation. 6. History of coronary artery disease. Patient is not presenting with any symptoms of acute coronary syndrome at this time. 7. Hypertension. 8. Clinical depression - chronic. PLAN 1. Resume patient's home medications. 2. Patient has received Levaquin IV in the emergency room setting at this time. 3. Tomorrow morning will start patient on Rocephin and Zithromax for presumed community-acquired pneumonia. 4. Will start patient on Lovenox tonight. 5. Order for CT chest PE to be ruled out tonight. 6. Oxygen supplementation is in progress. 7. Because of patient's shortness of breath and history of coronary artery disease and CA, will go ahead and add Troponin I check and EKG as well. [facility]
[2017-12-23] MEDS: FLUTICASONE/VILANTEROL 100/25mcg INHALER ORAL INH SCH (14:49)
[2017-12-23] MEDS ORDERED: ONDANSETRON 4 MG/2 ML INJECTION IVP PRN (15:09)
--- NOTE | 2017-12-23 18:24 | CT Scan Report ---
Indication: sob, hemoptysis,elevated D Dimer, and hx of recurrent PE PROCEDURE: CT angio pulm emboli: Encounter: Initial Comparison: November 01, 2016 Technique: Axial CT pulmonary angiographic phase images were performed through the chest after the administration of intravenous contrast. Coronal and Sagittal MIP reconstructed images were created and reviewed. Automated Exposure Control and Iterative Reconstruction dose reducing techniques were utilized. Contrast: Omnipaque 350 75 mL Findings: Pulmonary arteries: Exam is diagnostic to the subsegmental pulmonary arterial level. There are small filling defects within the right lower lobe segmental and subsegmental pulmonary artery branches and a couple filling defects in the subsegmental vessels of the remaining lobes consistent with pulmonary emboli. The appearance is similar to the prior scan. No obvious new or worsening disease. Other findings: There is airspace consolidation in the right upper lobe with a small right effusion and minimal left basilar atelectasis. No pneumothorax. Central airways are patent. No axillary or mediastinal adenopathy. Heart size is stable. No pericardial effusion. The upper abdomen shows granulomatous disease in the liver and spleen. Impression: 1. Scattered pulmonary emboli which have a chronic appearance although a small amount of acute thrombus cannot be entirely excluded. 2. Right upper lobe pneumonia versus pulmonary hemorrhage. There is a preliminary report by [facility]. .
[2017-12-23] MEDS ORDERED: INFLUENZA VAC. INJ. ADMIN CHARGE INJ ONE (19:01)
[2017-12-23] MEDS: --POM--ATORVASTATIN 20 MG TABLET PO SCH (20:57)
[2017-12-24] MEDS: ISOSORBIDE DINITRATE 10 MG PO SCH (06:06)
--- NOTE | 2017-12-24 08:39 | Progress Note ---
DATE 12/23/2017 SUBJECTIVE Natali is lying in bed. She is complaining of nausea. She just feels ill still. She is not getting significantly better at this time. She is still having some hemoptysis with some blood-tinged sputum that she has been having. I reviewed the CT report - preliminary radiology report with the patient as well - CT angiogram for rule out pulmonary embolism. PHYSICAL EXAM GENERAL: She looks ill and tired. VITAL SIGNS: Blood pressure 190/59, pulse 51, temperature 96.5, O2 sat 92% on 2 liters oxygen by nasal cannula, respiration 16-20. NECK: Supple. CHEST: Lungs have decreased breath sounds in the right upper lobe as well as rales. Some occasional expiratory wheezing throughout. CARDIOVASCULAR: Regular rate and rhythm. No murmur. ABDOMEN: Soft. Nontender. No mass is palpable. EXTREMITIES: No cyanosis, clubbing or edema. NEURO EXAM: Patient is alert, awake, oriented x 3. No focal neurologic deficit. LABORATORY White blood count 22,200, hemoglobin 10.6. Bands of 4. Neutrophils of 84. Potassium 4.1. Creatinine 0.9. Glucose 179. Calcium down to 10.9. Magnesium 2.0. Total bilirubin 2.30. IMAGING Chest x-ray report: Right upper lobar pneumonia. ASSESSMENT 1. Right upper lobe pneumonia. 2. Active bronchitis with hemoptysis. 3. COPD exacerbation. 4. Generalized weakness. 5. Hypertension. 6. Hyperglycemia. Rule out diabetes mellitus. 7. Asymptomatic bradycardia probably from medication. 8. Nausea without vomiting. PLAN Add antinausea medicine to patient's current regimen. The preliminary radiology report pointed out that there is no acute central lobar pulmonary embolism. However, there is a nonocclusive right lower lobe segmental pulmonary embolism with a linear morphology. This is chronic and stable since November 01, 2016 according to the outside read. There are also questionable similar findings in the left lower lobe and upper lobe subsegmental pulmonary arteries which are also similar in appearance with prior examination. There is right upper lobe consolidation noted on the CT as well consistent with chest x-ray finding of right upper lobe pneumonia. PLAN 1. Will continue current antibiotics. 2. Add antiemetic. 3. Followup lab in the morning - CBC and CMP. 4. Check A1C to rule out diabetes mellitus type 2. 5. I will leave the patient on Lovenox until tomorrow and will have Dr. Ankit Mcneill advise us if we should get patient back on the Eliquis versus continuing with Lovenox for a while. [facility]TDD
[2017-12-24] MEDS: ENOXAPARIN 80 MG/0.8 ML INJECTION SQ SCH ×2 (08:50→20:19)
[2017-12-24] MEDS: CITALOPRAM 20 MG TABLET PO SCH (08:50)
[2017-12-24] MEDS: METOPROLOL SUCCINATE 50 MG PO SCH (08:51)
[2017-12-24] MEDS: --POM--LOSARTAN 100 MG TABLET PO SCH (08:51)
[2017-12-24] MEDS: AZITHROMYCIN IV 500 MG in NS 250ml 250 ML IV SCH (08:52)
[2017-12-24] MEDS: CEFTRIAXONE 1 G in NS 50 ML IV SCH (09:17)
[2017-12-24] MEDS: NS FLUSH BAG 500ml IV PRN (09:18)
[2017-12-24] MEDS: SALINE FLUSH 10ml SYRINGE IVF PRN (09:18)
[2017-12-24] MEDS: LEVOFLOXACIN PB 500 MG/100 ML BAG IV SCH (10:15)
--- NOTE | 2017-12-24 11:30 | Pulmonology Consult Note ---
<Jyoti Bird Kym - Last Filed: 12/24/17 11:15> History of Present Illness Consult date: 12/24/17 Reason for consult: dyspnea, cough, COPD, abnormal CXR/CT Chief complaint: SOB, cough History of present illness: This is a 77 yo woman with a Hx of COPD, DVT 2-3 yrs ago and CAD s/p stent. States she has had SOB noticed since June of 2017. Her recently so she states she had given up at that time and didn't seek further treatment for her breathing issues. Prior to that she had a DVT about 2-3 yrs ago with PE, her last CT scan Oct 2016 still noted chronic embolisms. She had been on coumadin up until February 2017 which she states she was switched to eliquis 5mg BID at that time. She does note having an Echo done through Dr. Weaver possibly in March 2017 but not sure of the results. She states she has had increased SOB since June and has recently became worse with cough and sputum. Is on Breo but recently switch to Advair secondary to her insurance, also on albuterol neb prn. She presented to the [facility] ER due to her increasing SOB , she is currently on 2L O2 per [place] which is her home O2. We have been consulted for her respiratory issues and appreciate the consult. Review of Systems - Constitutional Constitutional: Present: fatigue. Absent: anorexia, chills, daytime sleepiness - EENT Eyes: Absent: blurry vision, change in vision Nose: Absent: change in smell, pain Mouth/Throat: Present: mucosa moist - Cardiovascular Cardiovascular: Present: chest pain, dyspnea on exertion. Absent: palpitations , syncope - Respiratory Respiratory: Present: cough, dyspnea, hemoptysis, dyspnea on exertion, pain on inspiration. Absent: wheezing - Gastrointestinal Gastrointestinal: Absent: abdominal pain, change in bowel habits - Musculoskeletal Musculoskeletal: Absent: abnormal gait, arthralgias - Neurological Neurological: Absent: abnormal gait, abnormal movements - Psychiatric Psychiatric: Absent: abnormal sleep pattern, anxiety Additional comments: depression following a - Endocrine Endocrine: Absent: cold intolerance, excessive sweating, flushing - Hematologic/Lymphatic Hematologic/Lymphatic: Absent: easy bleeding, easy bruising - Allergic/Immunologic Allergic/Immunologic: Absent: tongue swelling, throat swelling PFSH Patient Stated Medical History Cataracts Yes Heart Murmur Yes Hypertension Yes Myocardial Infarction Yes: HX OF Chronic Obstructive Pulmonary Yes Disease (COPD) Pneumonia Yes Gastroesophageal Reflux Yes Disease Hx Urinary Tract Infection Yes: CHRONIC Clotting Problems Yes: HX OF Depression Yes Clinic Medical History (Last Updated 12/03/17 @ 09:17 by Karli Brian LPN) COPD (chronic obstructive pulmonary disease) (Chronic Medical) CAD (coronary artery disease) (Chronic Medical) Depression (Chronic Medical) Hypertension (Chronic Medical) LVH (left ventricular hypertrophy) (Chronic Medical) DVT (deep venous thrombosis) (Resolved Medical) Family History: Family History Mother Diabetes High blood pressure Father Coronary artery disease High blood pressure Diabetes Congestive heart failure Myocardial infarction Daughter High blood pressure - Social History Smoking status: Former smoker Housing: house service: No Current occupational status: retired Current residence: Apartment/Private Home Medications Home Medications Medication Instructions Recorded Confirmed Type Nitroglycerin [Nitrostat] 0.4 mg PO Q5MIN PRN #0 05/19/16 12/22/17 History Atorvastatin Calcium 20 mg PO HS #0 05/31/16 12/22/17 History apixaban (Eliquis)5 mg tablet 5 mg PO BID 04/09/17 12/22/17 History ALPRAZolam [Xanax 0.25 mg] 0.25 mg PO BID PRN 12/22/17 12/22/17 History Albuterol Neb (0.083%) [Proventil 1 vial INH Q4H PRN 12/22/17 12/22/17 History Neb (0.083%)] Albuterol Sulfate [Proventil Hfa 2 puff INH QID 12/22/17 12/22/17 History 90mcg] Benzonatate [Tessalon Perle] 1 cap PO TID PRN 12/22/17 12/22/17 History Cholecalciferol (Vitamin D3) 2,000 unit PO DAILY 12/22/17 12/22/17 History [Vitamin D3] Citalopram [Celexa] 20 mg PO DAILY 12/22/17 12/22/17 History Fluticasone/Vilanterol Inhaler 1 puff INH DAILY 12/22/17 12/22/17 History [Breo Ellipta 100-25 mcg Inhaler] Isosorbide Dinitrate 15 mg PO DAILY 12/22/17 12/22/17 History Losartan [Cozaar] 100 mg PO DAILY 12/22/17 12/22/17 History Metoprolol Succinate 50 mg PO DAILY 12/22/17 12/22/17 History Pantoprazole Tab [Protonix Tab] 40 mg PO DAILY 12/22/17 12/22/17 History Allergies Allergy/AdvReac Type Severity Reaction Status Date / Time aspirin AdvReac Unknown STOMACH Verified 12/22/17 16:05 UPSET hydrocodone AdvReac Unknown VOMITING Verified 12/22/17 16:05 Exam Vital signs: Temperature 97.3 F 12/24/17 07:31 Pulse Rate 51 L 12/24/17 07:31 Respiratory Rate 16 12/24/17 07:31 Blood Pressure 119/61 12/24/17 07:31 Pulse Oximetry 98 12/24/17 07:31 - Constitutional no acute distress, obese - Routine HEENT Exam Head: Present: normocephalic, atraumatic Eye: Present: EOMI, PERRL ENT: Present: mucous membranes moist Nose: moist mucous membranes - Routine Neck Exam Present: supple, full ROM, trachea midline - Routine Respiratory Exam Present: decreased breath sounds, rhonchi. Absent: accessory muscle use, patient mechanically ventilated - Routine Cardiovascular Exam Present: RRR, S1, S2, no murmur - Routine Abdominal Exam Present: soft, normoactive bowel sounds - Routine Extremities Exam Present: no edema, non tender, full ROM - Routine Back/Spine/Pelvis Exam Back/Spine: Present: full ROM - Routine Skin Exam Present: intact, dry - Routine Neurological Exam Present: alert, oriented X3, CN II-XII intact - Routine Psychiatric Exam Present: normal affect, normal thought process Results - Laboratory Findings CBC and BMP: 12/24/17 04:02 12/24/17 04:02 PT/INR, D-dimer D-Dimer 413 NG/ML (0-230) H 12/22/17 18:01 Abnormal lab findings: Abnormal Labs 12/23/17 12/23/17 12/24/17 04:40 04:40 04:02 WBC 22.2 H 24.3 H RBC 3.48 L 3.34 L Hgb 10.6 L 10.3 L Hct 33.2 L 31.9 L Neutrophils % (Manual) 84.0 H 80.0 H Lymphocytes % (Manual) 12.0 L 15.0 L Neutrophils # (Manual) 18.6 H 19.4 H BUN Glucose 179 H Calculated Osmolality 281 H Calcium 10.9 H 12/24/17 04:02 WBC RBC Hgb Hct Neutrophils % (Manual) Lymphocytes % (Manual) Neutrophils # (Manual) BUN 26.0 H D Glucose 144 H Calculated Osmolality 285 H Calcium 10.8 H - Diagnostic Findings CT scan - chest: image reviewed (R sided pna with nonocclysive thrombus on R) Assessment and Plan - Assessment and Plan Chronic Hypoxia - 2L O2 at home COPD R side pneumonia PE - R side nonocclusive Hemoptysis Plan: Pt currently on O2 at 2L per [place], O2 to keep sats 90-95%. Currently on lovenox 1mg/kg, therapeutic dosing, will check a 2D Echo to rule out CTEPH for c/o her SOB. R sided pna on levaquin and rocephin. Will change her advair to pulmicort BID with a/a QID and add IS. + hemoptysis but improving per pt and noted as dime size a couple times a day, cont with anticoagulant at this time and monitor. - Time Spent With Patient Total time spent is greater than 50% in coordination of care (as documented) at patient's floor/unit and/or counseling patient: 25 - 35 minutes <Ankit Mcneill - Last Filed: 12/25/17 16:38> [facility] Medical History (Last Updated 12/03/17 @ 09:17 by Karli Brian LPN) COPD (chronic obstructive pulmonary disease) (Chronic Medical) CAD (coronary artery disease) (Chronic Medical) Depression (Chronic Medical) Hypertension (Chronic Medical) LVH (left ventricular hypertrophy) (Chronic Medical) DVT (deep venous thrombosis) (Resolved Medical) Family History: Family History Mother Diabetes High blood pressure Father Coronary artery disease High blood pressure Diabetes Congestive heart failure Myocardial infarction Daughter High blood pressure Exam Vital signs: Temperature 96.6 F L 12/25/17 15:52 Pulse Rate 59 L 12/25/17 16:00 Respiratory Rate 16 12/25/17 15:52 Blood Pressure 141/64 H 12/25/17 15:52 Pulse Oximetry 87 L 12/25/17 15:52 Results - Laboratory Findings CBC and BMP: 12/25/17 04:09 12/24/17 04:02 PT/INR, D-dimer D-Dimer 413 NG/ML (0-230) H 12/22/17 18:01 Abnormal lab findings: Abnormal Labs 12/25/17 12/25/17 04:09 04:09 WBC 15.1 H RBC 3.35 L Hgb 10.3 L Hct 32.5 L Metamyelocytes % 1.0 H Neutrophils # (Manual) 9.5 H Triglycerides 158 H LDL Cholesterol, Calc 64.4 L VLDL Cholesterol 31.6 H HDL Cholesterol 36 L Assessment and Plan - Time Spent With Patient Total time spent is greater than 50% in coordination of care (as documented) at patient's floor/unit and/or counseling patient: - Attestation Attestation Narrative: I have personally seen and examined this patient. I have reviewed all pertinent data and discussed the case with the patient and her family. I discussed the case with the MAIL DELIVERER and the above notes represents my findings and recommendations
[2017-12-24] MEDS: FLUTICASONE/VILANTEROL 100/25mcg INHALER ORAL INH SCH (11:45)
[2017-12-24] MEDS: ALBUTEROL/IPRATROPIUM 2.5mg-0.5mg/3ml NEB AEROSOL SCH ×2 (13:30→19:24)
[2017-12-24] MEDS: BUDESONIDE INH.SOLN 0.5mg/2ml NEB AEROSOL SCH (13:30)
[2017-12-24] MEDS: ACETAMINOPHEN 500 MG TABLET PO PRN ×2 (14:15→20:20)
--- NOTE | 2017-12-24 14:25 | Progress Note ---
DATE: 12/24/2017 ALLI Hurst states that she is a little bit better this evening. She is still requiring about 2 liters of oxygen by nasal cannula. She had a chunk of blood- tinged sputum this morning. PHYSICAL EXAMINATION GENERAL: Patient looks comfortable, mildly dyspneic. VITAL SIGNS: Blood pressure 119/61 with a pulse 48-51, temperature 97.5, O2 sat 98% on 2 liters oxygen by nasal cannula. NECK: Supple. CHEST: Lung sounds decreased and crackling at the right upper lobe region. CARDIOVASCULAR: Regular rate and rhythm. No murmur. ABDOMEN: Soft. Nontender. No masses palpable. No organomegaly. EXTREMITIES: No cyanosis, clubbing or edema. NEURO EXAM: Grossly intact. Patient is alert, awake, oriented x 3. No focal neurologic deficit. LABORATORY Lab this morning includes a white blood count up to 24,300 today with hemoglobin stable at 10.3, bands 3, neutrophils 80%, potassium 4.2, creatinine 1.0, glucose 144, A1C 5.0, calcium 10.8. IMAGING CT report read by Dr. Chris Carreon this morning is pretty similar to the CT report by [facility]: Scattered pulmonary emboli which are chronic in appearance although a small amount of acute thrombus cannot be entirely excluded , right upper lobe pneumonia versus pulmonary hemorrhage. ASSESSMENT 1. Right upper lobe pneumonia. Possible pulmonary hemorrhage. 2. Persistent hemoptysis. 3. Chronic versus acute pulmonary embolism. 4. Generalized weakness. 5. Hypoxia. 6. COPD with mild exacerbation. 7. History of coronary artery disease. Patient does not have any symptoms of acute coronary syndrome at this time. 8. Hypertension. 9. Hyperglycemia. A1C is 5.0, not indicative for diabetes mellitus. 10. Clinical depression which is chronic. 11. Anxiety disorder. PLAN Discontinue Zithromax. Add Levaquin. Hold metoprolol for heart rate less than 60. Continue use of oxygen as needed. Encourage patient ambulation. Will have Dr. Ankit Mcneill consulted to help sort out what we needed to do in terms of continuing Lovenox versus resuming patient's Eliquis. [facility]
[2017-12-24] MEDS: --POM--ATORVASTATIN 20 MG TABLET PO SCH (20:20)
[2017-12-25] MEDS: ISOSORBIDE DINITRATE 10 MG PO SCH (07:50)
[2017-12-25] MEDS: NS FLUSH BAG 500ml IV PRN (07:51)
[2017-12-25] MEDS: LEVOFLOXACIN PB 500 MG/100 ML BAG IV SCH (07:51)
[2017-12-25] MEDS: BUDESONIDE INH.SOLN 0.5mg/2ml NEB AEROSOL SCH ×2 (08:09→19:11)
[2017-12-25] MEDS: ALBUTEROL/IPRATROPIUM 2.5mg-0.5mg/3ml NEB AEROSOL SCH ×4 (08:09→19:11)
--- NOTE | 2017-12-25 08:57 | Echocardiogram ---
DATE OF PROCEDURE December 24, [address] Jose Angel Blakely This is a two-dimensional echo with spectral Doppler, color-flow and M-mode. It was obtained in a patient with chronic PE. Left atrial dimension is normal. Left ventricular end-diastolic dimension is normal. Left ventricle wall thickness is normal. LV systolic function is normal with ejection fraction of about 69%. Right atrium is normal. Right ventricle is normal. Aortic root dimension is normal. Mitral valve is morphologically normal with mild mitral regurgitation. Aortic valve shows fibrocalcific changes with mild restriction on opening motion. Transaortic velocities are increased with peak velocity of 2.76 m/sec. Peak gradient across the aortic valve is 30 with mean gradient of 16. Aortic valve area is calculated at 1.24 cm2. Mild aortic insufficiency is present. Tricuspid valve shows mild tricuspid regurgitation with mild pulmonary hypertension with estimated pulmonary artery systolic pressure of 41. Pulmonary valve shows mild pulmonary insufficiency. There is no pericardial effusion. IMPRESSION 1. Normal LV systolic function with ejection fraction of 69%. 2. Mild mitral regurgitation. 3. Mild aortic stenosis with a valve area of 1.24 cm2 with mild aortic insufficiency. 4. Mild tricuspid regurgitation with mild pulmonary hypertension with estimated pulmonary artery systolic pressure of 41. 5. Mild pulmonary insufficiency. MTDD
[2017-12-25] MEDS: ENOXAPARIN 80 MG/0.8 ML INJECTION SQ SCH ×2 (09:08→20:05)
[2017-12-25] MEDS: CITALOPRAM 20 MG TABLET PO SCH (09:08)
[2017-12-25] MEDS: METOPROLOL SUCCINATE 50 MG PO SCH (09:09)
[2017-12-25] MEDS: --POM--LOSARTAN 100 MG TABLET PO SCH (09:11)
[2017-12-25] MEDS: CEFTRIAXONE 1 G in NS 50 ML IV SCH (09:18)
[2017-12-25] MEDS: ACETAMINOPHEN 500 MG TABLET PO PRN (13:02)
[2017-12-25] MEDS ORDERED: POLYETHYL GLYCOL 3350 17gm PACKET PO PRN (13:33)
[2017-12-25] MEDS: --POM--ATORVASTATIN 20 MG TABLET PO SCH (20:06)
--- NOTE | 2017-12-25 21:10 | Progress Note ---
DATE 12/25/2017 ALLI Hurst is lying in bed this morning in room #140 on the medical floor. She thought she may be a little bit better, not significantly. She is just too weak. She is having less blood-tinged sputum. PHYSICAL EXAM GENERAL: The patient looks comfortable. VITAL SIGNS: Blood pressure 152/70, pulse 57, respirations 18, oxygen saturation 92% on room air. NECK: Supple. CHEST: Lungs have crackles at the right lower lobe. CARDIOVASCULAR: Regular rate and rhythm. No murmur. ABDOMEN: Soft, nontender. No mass is palpable. EXTREMITIES: No edema. NEUROLOGIC: Grossly intact. LABORATORY WBC 15.1, down from 24.0 yesterday. Bands 2. Neutrophils 63. Electrolytes were not done today. Triglycerides 158. Total cholesterol 132. LDL 64. HDL 36. ASSESSMENT 1. Right upper lobe pneumonia. Possible pulmonary hemorrhage. 2. Persistent hemoptysis. 3. Chronic versus acute pulmonary embolism. 4. Generalized weakness. 5. Hypoxia. 6. COPD with mild exacerbation. 7. History of coronary artery disease. No evidence of acute coronary syndrome at this time. 8. Hypertension. 9. Hyperglycemia. 10. Clinical depression which is chronic. 11. Anxiety disorder which is chronic. PLAN Continue current regimen. Followup CBC. MTDD
[2017-12-26] MEDS: ISOSORBIDE DINITRATE 10 MG PO SCH (06:05)
[2017-12-26] MEDS: SALINE FLUSH 10ml SYRINGE IVF PRN (06:05)
[2017-12-26] MEDS: BUDESONIDE INH.SOLN 0.5mg/2ml NEB AEROSOL SCH ×3 (09:30→19:35)
[2017-12-26] MEDS: ALBUTEROL/IPRATROPIUM 2.5mg-0.5mg/3ml NEB AEROSOL SCH ×4 (09:30→19:36)
[2017-12-26] MEDS: LEVOFLOXACIN PB 500 MG/100 ML BAG IV SCH (09:44)
[2017-12-26] MEDS: CITALOPRAM 20 MG TABLET PO SCH (09:45)
[2017-12-26] MEDS: ENOXAPARIN 80 MG/0.8 ML INJECTION SQ SCH ×2 (09:47→20:52)
[2017-12-26] MEDS: --POM--LOSARTAN 100 MG TABLET PO SCH (09:48)
[2017-12-26] MEDS: METOPROLOL SUCCINATE 50 MG PO SCH (11:01)
[2017-12-26] MEDS: CEFTRIAXONE 1 G in NS 50 ML IV SCH (11:46)
--- NOTE | 2017-12-26 12:26 | Pulmonology Progress Note ---
Subjective Principal diagnosis: SOB Interval history: Pt in room on RA, states she has a cough with some sputum but SOB improved. Exam Vital signs: Temperature 97.8 F 12/26/17 07:00 Pulse Rate 80 12/26/17 10:59 Respiratory Rate 22 12/26/17 11:15 Blood Pressure 154/65 H 12/26/17 07:00 Pulse Oximetry 97 12/26/17 11:15 Inpatient Medications: Generic Name Dose Route Start Last Admin Trade Name Freq PRN Reason Stop Dose Admin Acetaminophen 500 - 1,000 mg 12/23/17 20:42 12/25/17 13:02 Tylenol PO 1,000 mg Q6H PRN Administration Discomfort Albuterol Sulfate 2.5 mg 12/22/17 21:10 12/22/17 22:54 Proventil Neb (0.083%) AEROSOL 2.5 mg Q4H PRN Administration Wheezing Albuterol/Ipratropium 3 ml 12/24/17 15:00 12/26/17 11:15 Duoneb AEROSOL 3 ml RTQID WANDA Administration Alprazolam 0.25 mg 12/22/17 21:10 Xanax 0.25 Mg PO BID PRN Anxiety Atorvastatin Calcium 20 mg 12/23/17 21:00 12/25/17 20:06 Lipitor PO 20 mg HS WANDA Administration Benzonatate 100 mg 12/22/17 21:10 12/26/17 09:45 Tessalon Perles PO 100 mg TID PRN Administration Cough Budesonide 0.5 mg 12/24/17 19:00 12/26/17 11:16 Pulmicort Inhalation AEROSOL 0.5 mg RTBID WANDA Administration Cholecalciferol 2,000 unit 12/23/17 09:00 12/26/17 10:01 Vit. D-3 PO 2,000 unit DAILY WANDA Administration Citalopram Hydrobromide 20 mg 12/23/17 09:00 12/26/17 09:45 Celexa PO 20 mg DAILY WANDA Administration Enoxaparin Sodium 80 mg 12/23/17 21:00 12/26/17 09:47 Lovenox SQ 80 mg BID WANDA Administration Ceftriaxone Sodium 1 g/ Sodium 50 mls @ 100 mls/hr 12/23/17 09:00 12/26/17 11 :46 Chloride IV 100 mls/hr Q24H WANDA Administration Levofloxacin/Dextrose 500 mg in 100 mls @ 100 mls/hr 12/24/17 08:45 12/26/17 10:44 Levaquin Premix IV Infused Q24H WANDA Infusion Isosorbide Dinitrate 15 mg 12/23/17 07:00 12/26/17 06:05 Isordil PO 15 mg 0700 WANDA Administration Losartan Potassium 100 mg 12/23/17 09:00 12/26/17 09:48 Cozaar PO 100 mg DAILY WANDA Administration Metoprolol Succinate 50 mg 12/23/17 09:00 12/26/17 11:01 Toprol Xl PO 50 mg DAILY WANDA Administration Nitroglycerin 0.4 mg 12/22/17 21:10 Nitrostat SL Q5MIN PRN CP Ondansetron HCl 4 mg 12/23/17 15:09 12/25/17 14:59 Zofran IVP 4 mg Q4H PRN Administration Nausea &/or vomiting Polyethylene Glycol 17 gm 12/25/17 13:33 12/25/17 14:59 Miralax PO 17 gm DAILY PRN Administration Sodium Chloride 10 - 80 ml 12/22/17 16:56 12/26/17 06:05 Iv Flush IVF 10 ml PRN PRN Administration Flushing Sodium Chloride 500 ml 12/23/17 09:01 12/25/17 07:51 Normal Saline IV 500 ml PRN PRN Administration Discontinued Medications Generic Name Dose Route Start Last Admin Trade Name Freq PRN Reason Stop Dose Admin Acetaminophen 500 mg 12/22/17 20:54 12/23/17 15:43 Tylenol PO 500 mg Q5H PRN Administration Discomfort Albuterol/Ipratropium 3 ml 12/22/17 16:56 12/22/17 17:30 Duoneb AEROSOL 12/22/17 16:57 3 ml O ONE Administration Enoxaparin Sodium 80 mg 12/22/17 20:30 12/23/17 08:56 Lovenox SQ 80 mg DAILY WANDA Administration Fluticasone/Vilanterol 1 puff 12/23/17 09:00 12/24/17 11:45 Breo Ellipta Inhaler ORAL INH Not Given DAILY WANDA Levofloxacin/Dextrose 500 mg in 100 mls @ 100 mls/hr 12/22/17 19:00 12/22/17 23:30 Levaquin Premix IV Infused Q24H WANDA Infusion Azithromycin 500 mg/ Sodium 250 mls @ 167 mls/hr 12/23/17 09:00 12/24/17 08: 52 Chloride IV 12/24/17 10:30 Not Given Q24H [facility] Influenza Virus Vaccine 0.5 ml 12/23/17 05:12 12/23/17 06:02 Fluzone Hd Vac IM 12/23/17 05:13 0.5 ml .ONCE ONE Administration Methylprednisolone Sodium Succinate 125 mg 12/22/17 16:56 12/22/17 18:15 Solu-Medrol IVP 12/22/17 16:57 125 mg O ONE Administration Potassium Chloride 40 meq 12/22/17 20:27 12/22/17 22:11 K-Dur 20 Meq Tablet PO 12/22/17 20:28 40 meq O ONE Administration - Constitutional no acute distress, obese, cooperative - Routine HEENT Exam Head: Present: normocephalic, atraumatic Eye: Present: EOMI, PERRL ENT: Present: mucous membranes moist - Routine Neck Exam Present: supple, full ROM, trachea midline - Routine Respiratory Exam Present: decreased breath sounds, rhonchi. Absent: accessory muscle use, patient mechanically ventilated - Routine Cardiovascular Exam Present: RRR, S2, no murmur - Routine Abdominal Exam Present: soft, normoactive bowel sounds - Routine Extremities Exam Present: no edema, non tender, full ROM - Routine Back/Spine/Pelvis Exam Back/Spine: Present: full ROM - Routine Skin Exam Present: intact, dry - Routine Neurological Exam Present: alert, oriented X3, CN II-XII intact - Routine Psychiatric Exam Present: normal affect, normal thought process Results - Laboratory Findings Laboratory: Laboratory Results - last 48 hr 12/25/17 12/25/17 04:09 04:09 WBC 15.1 H RBC 3.35 L Hgb 10.3 L Hct 32.5 L MCV 97.0 MCH 30.7 MCHC 31.7 RDW Std Deviation 43.8 Plt Count 242 MPV 11.0 Immature Gran % (Auto) Not performed Neut % (Auto) Not performed Lymph % (Auto) Not performed [place] % (Auto) Not performed Eos % (Auto) Not performed Baso % (Auto) Not performed Neut # (Auto) Not performed Lymph # (Auto) Not performed [place] # (Auto) Not performed Eos # (Auto) Not performed Baso # (Auto) Not performed Abs Immat Gran (auto) Not performed Neutrophils % (Manual) 63.0 Band Neutrophils % 2.0 Lymphocytes % (Manual) 32.0 Monocytes % (Manual) 2.0 Metamyelocytes % 1.0 H Neutrophils # (Manual) 9.5 H Band Neutrophils # 0.3 Lymphocytes # (Manual) 4.8 Monocytes # (Manual) 0.3 Metamyelocytes # 0.2 Nucleated RBCs 1 Poikilocytosis 1+ Anisocytosis 1+ [place] Cells 1+ RBC Morph Comment Abnormal Triglycerides 158 H Cholesterol 132 LDL Cholesterol, Calc 64.4 L VLDL Cholesterol 31.6 H HDL Cholesterol 36 L Cholesterol/HDL Ratio 3.7 Assessment and Plan - Assessment and Plan Chronic Hypoxia - 2L O2 at home COPD R side pneumonia PE - R side nonocclusive Hemoptysis Plan: Pt currently on RA, O2 to keep sats 90-95%. Currently on lovenox 1mg/kg, therapeutic dosing, echo only shows mild elevated PAP of 41. R sided pna on levaquin and rocephin, check CXR in am, WBC improving. On pulmicort BID with a/ a QID and IS, brielle well. - Time Spent With Patient Total time spent is greater than 50% in coordination of care (as documented) at patient's floor/unit and/or counseling patient: less than 15 minutes
[2017-12-26] MEDS: --POM--ATORVASTATIN 20 MG TABLET PO SCH (20:52)
[2017-12-27] MEDS: ALPRAZolam 0.25 MG TABLET PO PRN ×2 (04:33→21:11)
[2017-12-27] MEDS: ISOSORBIDE DINITRATE 10 MG PO SCH (07:18)
[2017-12-27] MEDS: ALBUTEROL/IPRATROPIUM 2.5mg-0.5mg/3ml NEB AEROSOL SCH ×4 (08:17→19:35)
[2017-12-27] MEDS: BUDESONIDE INH.SOLN 0.5mg/2ml NEB AEROSOL SCH ×2 (08:17→19:35)
[2017-12-27] MEDS: ENOXAPARIN 80 MG/0.8 ML INJECTION SQ SCH ×2 (08:33→21:11)
[2017-12-27] MEDS: CEFTRIAXONE 1 G in NS 50 ML IV SCH (08:34)
[2017-12-27] MEDS: CITALOPRAM 20 MG TABLET PO SCH (08:35)
[2017-12-27] MEDS: --POM--LOSARTAN 100 MG TABLET PO SCH (08:36)
[2017-12-27] MEDS: METOPROLOL SUCCINATE 50 MG PO SCH (08:40)
[2017-12-27] MEDS: LEVOFLOXACIN PB 500 MG/100 ML BAG IV SCH (09:15)
--- NOTE | 2017-12-27 09:26 | XRay Report ---
INDICATION: pna PROCEDURE: CHEST 2-VIEWS UPRIGHT (PA & LAT) Encounter: Initial COMPARISON: December 22, 2017 FINDINGS: Right upper lobe airspace opacity has significantly improved and nearly cleared. No new areas of airspace disease. Left lung is clear. No pneumothorax or effusion. Heart size and mediastinal contours are normal. Pulmonary vascularity is normal. Impression: Significant improvement in the right upper lobe pneumonia which has nearly cleared. .
--- NOTE | 2017-12-27 15:08 | Pulmonology Progress Note ---
Subjective Principal diagnosis: SOB Interval history: Not requiring supplemental O2. breathing is comfortable Coughing is improved. no new complaints Exam Vital signs: Temperature 96.5 F L 12/27/17 07:00 Pulse Rate 83 12/27/17 08:41 Respiratory Rate 18 12/27/17 11:09 Blood Pressure 145/81 H 12/27/17 07:00 Pulse Oximetry 99 12/27/17 11:09 Inpatient Medications: Generic Name Dose Route Start Last Admin Trade Name Freq PRN Reason Stop Dose Admin Acetaminophen 500 - 1,000 mg 12/23/17 20:42 12/25/17 13:02 Tylenol PO 1,000 mg Q6H PRN Administration Discomfort Albuterol Sulfate 2.5 mg 12/22/17 21:10 12/22/17 22:54 Proventil Neb (0.083%) AEROSOL 2.5 mg Q4H PRN Administration Wheezing Albuterol/Ipratropium 3 ml 12/24/17 15:00 12/27/17 11:08 Duoneb AEROSOL 3 ml RTQID WANDA Administration Alprazolam 0.25 mg 12/22/17 21:10 12/27/17 04:33 Xanax 0.25 Mg PO 0.25 mg BID PRN Administration Anxiety Atorvastatin Calcium 20 mg 12/23/17 21:00 12/26/17 20:52 Lipitor PO 20 mg HS WANDA Administration Benzonatate 100 mg 12/22/17 21:10 12/26/17 09:45 Tessalon Perles PO 100 mg TID PRN Administration Cough Budesonide 0.5 mg 12/24/17 19:00 12/27/17 08:17 Pulmicort Inhalation AEROSOL 0.5 mg RTBID WANDA Administration Cholecalciferol 2,000 unit 12/23/17 09:00 12/27/17 08:35 Vit. D-3 PO 2,000 unit DAILY WANDA Administration Citalopram Hydrobromide 20 mg 12/23/17 09:00 12/27/17 08:35 Celexa PO 20 mg DAILY WANDA Administration Enoxaparin Sodium 80 mg 12/23/17 21:00 12/27/17 08:33 Lovenox SQ 80 mg BID WANDA Administration Ceftriaxone Sodium 1 g/ Sodium 50 mls @ 100 mls/hr 12/23/17 09:00 12/27/17 09 :04 Chloride IV Infused Q24H WANDA Infusion Levofloxacin/Dextrose 500 mg in 100 mls @ 100 mls/hr 12/24/17 08:45 12/27/17 10:15 Levaquin Premix IV Infused Q24H WANDA Infusion Isosorbide Dinitrate 15 mg 12/23/17 07:00 12/27/17 07:18 Isordil PO 15 mg 0700 WANDA Administration Losartan Potassium 100 mg 12/23/17 09:00 12/27/17 08:36 Cozaar PO 100 mg DAILY WANDA Administration Metoprolol Succinate 50 mg 12/23/17 09:00 12/27/17 08:40 Toprol Xl PO 50 mg DAILY WANDA Administration Nitroglycerin 0.4 mg 12/22/17 21:10 Nitrostat SL Q5MIN PRN CP Ondansetron HCl 4 mg 12/23/17 15:09 12/25/17 14:59 Zofran IVP 4 mg Q4H PRN Administration Nausea &/or vomiting Polyethylene Glycol 17 gm 12/25/17 13:33 12/25/17 14:59 Miralax PO 17 gm DAILY PRN Administration Sodium Chloride 10 - 80 ml 12/22/17 16:56 12/26/17 06:05 Iv Flush IVF 10 ml PRN PRN Administration Flushing Sodium Chloride 500 ml 12/23/17 09:01 12/25/17 07:51 Normal Saline IV 500 ml PRN PRN Administration Discontinued Medications Generic Name Dose Route Start Last Admin Trade Name Freq PRN Reason Stop Dose Admin Acetaminophen 500 mg 12/22/17 20:54 12/23/17 15:43 Tylenol PO 500 mg Q5H PRN Administration Discomfort Albuterol/Ipratropium 3 ml 12/22/17 16:56 12/22/17 17:30 Duoneb AEROSOL 12/22/17 16:57 3 ml O ONE Administration Enoxaparin Sodium 80 mg 12/22/17 20:30 12/23/17 08:56 Lovenox SQ 80 mg DAILY WANDA Administration Fluticasone/Vilanterol 1 puff 12/23/17 09:00 12/24/17 11:45 Breo Ellipta Inhaler ORAL INH Not Given DAILY WANDA Levofloxacin/Dextrose 500 mg in 100 mls @ 100 mls/hr 12/22/17 19:00 12/22/17 23:30 Levaquin Premix IV Infused Q24H WANDA Infusion Azithromycin 500 mg/ Sodium 250 mls @ 167 mls/hr 12/23/17 09:00 12/24/17 08: 52 Chloride IV 12/24/17 10:30 Not Given Q24H [facility] Influenza Virus Vaccine 0.5 ml 12/23/17 05:12 12/23/17 06:02 Fluzone Hd Vac IM 12/23/17 05:13 0.5 ml .ONCE ONE Administration Methylprednisolone Sodium Succinate 125 mg 12/22/17 16:56 12/22/17 18:15 Solu-Medrol IVP 12/22/17 16:57 125 mg O ONE Administration Potassium Chloride 40 meq 12/22/17 20:27 12/22/17 22:11 K-Dur 20 Meq Tablet PO 12/22/17 20:28 40 meq O ONE Administration - Constitutional no acute distress - Routine HEENT Exam Head: Present: normocephalic Eye: Absent: conjunctival icterus - Routine Neck Exam Present: supple - Routine Respiratory Exam Present: CTA bilaterally. Absent: accessory muscle use - Routine Cardiovascular Exam Present: RRR - Routine Abdominal Exam Present: soft, non distended. Absent: non tender, rebound, guarding Assessment and Plan (1) Community acquired pneumonia Status: Acute Assessment and plan: transition to PO antibiotics, PO Levaquin would be appropriate to finish full 10 day course Current Visit: Yes (2) COPD (chronic obstructive pulmonary disease) Status: Chronic Assessment and plan: continue neb budesonide, albuterol and ipratropium Current Visit: No (3) Pulmonary embolism Status: Acute Assessment and plan: ok to stop lovenox and resume Eliquis 5mg BID Current Visit: Yes - Assessment and Plan Chronic Hypoxia - 2L O2 at home COPD R side pneumonia PE - R side nonocclusive Hemoptysis Plan: - Time Spent With Patient Total time spent is greater than 50% in coordination of care (as documented) at patient's floor/unit and/or counseling patient: less than 15 minutes
[2017-12-27] MEDS: --POM--ATORVASTATIN 20 MG TABLET PO SCH (21:11)
[2017-12-27 23:10] VITALS: RESP 16
[2017-12-28] MEDS: ISOSORBIDE DINITRATE 10 MG PO SCH (06:39)
[2017-12-28] MEDS: ALBUTEROL/IPRATROPIUM 2.5mg-0.5mg/3ml NEB AEROSOL SCH ×2 (06:49→12:05)
[2017-12-28 07:37] VITALS: BP 150/71; TEMP 98; O2SAT 93
[2017-12-28] MEDS: CEFTRIAXONE 1 G in NS 50 ML IV SCH ×2 (08:26→10:02)
[2017-12-28] MEDS: --POM--LOSARTAN 100 MG TABLET PO SCH (08:28)
[2017-12-28] MEDS: CITALOPRAM 20 MG TABLET PO SCH (08:28)
[2017-12-28] MEDS: METOPROLOL SUCCINATE 50 MG PO SCH (08:28)
[2017-12-28 09:58] VITALS: PULSE 62
[2017-12-28] MEDS: ENOXAPARIN 80 MG/0.8 ML INJECTION SQ SCH (10:02)
[2017-12-28] MEDS: LEVOFLOXACIN PB 500 MG/100 ML BAG IV SCH (10:03)
--- NOTE | 2017-12-28 11:17 | Pulmonology Progress Note ---
Subjective Principal diagnosis: SOB Interval history: Pt currently resting on RA. States her breathing is doing fine, no real cough or SOB at this time and ready to go home. No concerns noted. Exam Vital signs: Temperature 98.0 F 12/28/17 07:00 Pulse Rate 62 12/28/17 08:00 Respiratory Rate 16 12/28/17 07:00 Blood Pressure 150/71 H 12/28/17 07:00 Pulse Oximetry 93 12/28/17 07:00 Inpatient Medications: Generic Name Dose Route Start Last Admin Trade Name Freq PRN Reason Stop Dose Admin Acetaminophen 500 - 1,000 mg 12/23/17 20:42 12/25/17 13:02 Tylenol PO 1,000 mg Q6H PRN Administration Discomfort Albuterol Sulfate 2.5 mg 12/22/17 21:10 12/22/17 22:54 Proventil Neb (0.083%) AEROSOL 2.5 mg Q4H PRN Administration Wheezing Albuterol/Ipratropium 3 ml 12/24/17 15:00 12/28/17 06:49 Duoneb AEROSOL Not Given RTQID WANDA Alprazolam 0.25 mg 12/22/17 21:10 12/27/17 21:11 Xanax 0.25 Mg PO 0.25 mg BID PRN Administration Anxiety Atorvastatin Calcium 20 mg 12/23/17 21:00 12/27/17 21:11 Lipitor PO 20 mg HS WANDA Administration Benzonatate 100 mg 12/22/17 21:10 12/26/17 09:45 Tessalon Perles PO 100 mg TID PRN Administration Cough Budesonide 0.5 mg 12/24/17 19:00 12/27/17 19:35 Pulmicort Inhalation AEROSOL 0.5 mg RTBID WANDA Administration Cholecalciferol 2,000 unit 12/23/17 09:00 12/28/17 08:27 Vit. D-3 PO 2,000 unit DAILY WANDA Administration Citalopram Hydrobromide 20 mg 12/23/17 09:00 12/28/17 08:28 Celexa PO 20 mg DAILY WANDA Administration Enoxaparin Sodium 80 mg 12/23/17 21:00 12/28/17 10:02 Lovenox SQ 80 mg BID WANDA Administration Ceftriaxone Sodium 1 g/ Sodium 50 mls @ 100 mls/hr 12/23/17 09:00 12/28/17 10 :02 Chloride IV Not Given Q24H WANDA Levofloxacin/Dextrose 500 mg in 100 mls @ 100 mls/hr 12/24/17 08:45 12/28/17 10:03 Levaquin Premix IV Not Given Q24H WANDA Isosorbide Dinitrate 15 mg 12/23/17 07:00 12/28/17 06:39 Isordil PO 15 mg 0700 WANDA Administration Losartan Potassium 100 mg 12/23/17 09:00 12/28/17 08:28 Cozaar PO 100 mg DAILY WANDA Administration Metoprolol Succinate 50 mg 12/23/17 09:00 12/28/17 08:28 Toprol Xl PO 50 mg DAILY WANDA Administration Nitroglycerin 0.4 mg 12/22/17 21:10 Nitrostat SL Q5MIN PRN CP Ondansetron HCl 4 mg 12/23/17 15:09 12/25/17 14:59 Zofran IVP 4 mg Q4H PRN Administration Nausea &/or vomiting Polyethylene Glycol 17 gm 12/25/17 13:33 12/25/17 14:59 Miralax PO 17 gm DAILY PRN Administration Sodium Chloride 10 - 80 ml 12/22/17 16:56 12/26/17 06:05 Iv Flush IVF 10 ml PRN PRN Administration Flushing Sodium Chloride 500 ml 12/23/17 09:01 12/25/17 07:51 Normal Saline IV 500 ml PRN PRN Administration Discontinued Medications Generic Name Dose Route Start Last Admin Trade Name Freq PRN Reason Stop Dose Admin Acetaminophen 500 mg 12/22/17 20:54 12/23/17 15:43 Tylenol PO 500 mg Q5H PRN Administration Discomfort Albuterol/Ipratropium 3 ml 12/22/17 16:56 12/22/17 17:30 Duoneb AEROSOL 12/22/17 16:57 3 ml O ONE Administration Enoxaparin Sodium 80 mg 12/22/17 20:30 12/23/17 08:56 Lovenox SQ 80 mg DAILY WANDA Administration Fluticasone/Vilanterol 1 puff 12/23/17 09:00 12/24/17 11:45 Breo Ellipta Inhaler ORAL INH Not Given DAILY WANDA Levofloxacin/Dextrose 500 mg in 100 mls @ 100 mls/hr 12/22/17 19:00 12/22/17 23:30 Levaquin Premix IV Infused Q24H WANDA Infusion Azithromycin 500 mg/ Sodium 250 mls @ 167 mls/hr 12/23/17 09:00 12/24/17 08: 52 Chloride IV 12/24/17 10:30 Not Given Q24H WANDA Influenza Virus Vaccine 0.5 ml 12/23/17 05:12 12/23/17 06:02 Fluzone Hd Vac IM 12/23/17 05:13 0.5 ml .ONCE ONE Administration Methylprednisolone Sodium Succinate 125 mg 12/22/17 16:56 12/22/17 18:15 Solu-Medrol IVP 12/22/17 16:57 125 mg O ONE Administration Potassium Chloride 40 meq 12/22/17 20:27 12/22/17 22:11 K-Dur 20 Meq Tablet PO 12/22/17 20:28 40 meq O ONE Administration - Constitutional no acute distress, obese, cooperative - Routine HEENT Exam Head: Present: normocephalic, atraumatic Eye: Present: EOMI, PERRL ENT: Present: mucous membranes moist - Routine Neck Exam Present: supple, full ROM - Routine Respiratory Exam Present: CTA bilaterally. Absent: accessory muscle use, patient mechanically ventilated - Routine Cardiovascular Exam Present: RRR, S2, no murmur - Routine Abdominal Exam Present: soft, normoactive bowel sounds - Routine Extremities Exam Present: no edema, non tender, full ROM - Routine Back/Spine/Pelvis Exam Back/Spine: Present: full ROM - Routine Skin Exam Present: intact, dry - Routine Neurological Exam Present: alert, oriented X3, CN II-XII intact - Routine Psychiatric Exam Present: normal affect, normal thought process Results - Diagnostic Findings Chest x-ray: image reviewed (no new CXR) Assessment and Plan - Assessment and Plan Chronic Hypoxia - 2L O2 at home COPD R side pneumonia PE - R side nonocclusive Hemoptysis Plan: Pt currently on RA and doing well. Still on Rocephin/levaquin, would change to levaquin OP for total of 10 days of abx treatment. OK to change to eliquis 5mg BID. Would have her follow up with pulm in 3-4 weeks. OK to continue her home advair and albuterol neb, recommend OP PFT. - Time Spent With Patient Total time spent is greater than 50% in coordination of care (as documented) at patient's floor/unit and/or counseling patient: less than 15 minutes
[2017-12-28] MEDS: BUDESONIDE INH.SOLN 0.5mg/2ml NEB AEROSOL SCH (12:05)
--- NOTE | 2017-12-28 16:14 | Progress Note ---
DATE 12/27/2017 SUBJECTIVE The patient noted that she is better today. Less coughing spells. The patient denies dyspnea. PHYSICAL EXAM VITAL SIGNS: Blood pressure 144/81, pulse 53, respirations 16, temperature 96.5 , oxygen saturation 93% on room air. GENERAL: The patient looks comfortable today, in no acute distress. NECK: Supple. CHEST: Lungs are clearing. The right lower lobe rales are improving. CARDIOVASCULAR: Regular rate and rhythm. ABDOMEN: Soft. EXTREMITIES: No edema. ASSESSMENT 1. Right upper lobe pneumonia. 2. Persistent hemoptysis - improving. 3. Chronic nonobstructive pulmonary embolism. 4. Generalized weakness and hypoxia with mild exacerbation. 5. Coronary artery disease. PLAN Continue current care. Anticipate dismissal tomorrow. Will coordinate this with Dr. Mcneill, dispatcher bus and trolley. RHINA
--- NOTE | 2017-12-28 16:37 | Progress Note ---
DATE 12/26/2017 SUBJECTIVE Natali in lying in her bed in room 140 on the medical floor. She basically thinks she is about the same. She has seen no significant changes today. She is having less blood-tinged sputum production lately. PHYSICAL EXAM VITAL SIGNS: Blood pressure 168/67, with a pulse of 55, temperature 98.0. O2 sat 91% on room air. GENERAL: The patient looks comfortable today, in no acute distress. NECK: Supple. CHEST: Decreased breath sounds in the right lower lobe. CARDIOVASCULAR: Regular rate and rhythm. ABDOMEN: Soft. EXTREMITIES: No edema. NEURO EXAM: Grossly intact. ASSESSMENT 1. Right upper lobe pneumonia. Possible pulmonary hemorrhage. 2. Persistent hemoptysis. 3. Chronic nonobstructive pulmonary embolism. 4. Generalized weakness and hypoxia 5. Chronic obstructive pulmonary disease with mild exacerbation. 6. History of coronary artery disease. No evidence of acute coronary syndrome at this time. 7. Hypertension. 8. Depression, chronic. 9. Anxiety, chronic. PLAN Continue current regimen. MTDD
--- NOTE | 2017-12-28 17:59 | Discharge Summary ---
FINAL DIAGNOSES 1. Right upper lobe pneumonia. 2. Persistent hemoptysis due to #1. 3. Chronic nonocclusive pulmonary embolism. 4. Generalized weakness. 5. Hypoxia - treated and resolved. 6. COPD with mild exacerbation. 7. Anxiety - chronic. 8. Depression - chronic. CONSULTATION Dr. Ankit Mcneill REASON FOR CONSULTATION Persistent nonocclusive pulmonary embolism in a patient who has been on Eliquis for a year and a half. REASON FOR ADMISSION The patient is a 77-year-old female who presented to [facility] Emergency Room today with a chief complaint of progressively worsening shortness of breath over the last five months. She lost her about five months ago and has no desire to see a doctor or leave the house. However, over the last couple of weeks her symptoms were getting worse. She was having more difficulty breathing. She was coughing more with blood-tinged sputum production. She said her symptoms were reminiscent of when she had a PE in the past. She has had a PE twice. The first time she was treated with warfarin for about six to 12 months. That was then changed to Eliquis and she has been on that for about a year and a half. She does have history of COPD as well. On physical examination the patient was very dyspneic. Temperature was 99.8, pulse 83, respirations 22, blood pressure 139/62 with oxygen saturation 95% on oxygen at 2 L/nasal cannula. Lung exam showed decreased breath sounds and rales throughout the right upper lobe region. The rest of her physical examination was unremarkable other than the patient looked weak and ill-appearing but not septic. LABORATORY WBC 18.9, hemoglobin 11.8. D-dimer 413. Potassium 3.5, glucose 139, calcium 11, total bilirubin 2.30. Influenza A and B antigens were negative. IMAGING Chest x-ray did show evidence of right upper lobe pneumonia. HOSPITAL COURSE The patient was admitted to the medical floor under the care of Dr. Jose Angel Blakely. The patient was started on Lovenox and we held Eliquis. She received supplemental oxygen throughout her hospitalization until 48 hours prior to dismissal where on room air her saturation was okay. The patient was started on broad-spectrum IV antibiotics, IV Levaquin and IV Rocephin. Due to the patient's hemoptysis and history of pulmonary embolism we elected to repeat a CT angiogram PE. The CT angiogram was done on 12/22/2017 due to elevated D-dimer as well as shortness of breath and hemoptysis. CT chest showed a scattered pulmonary embolism which had a chronic appearance although a small amount of acute thrombus could not be entirely excluded. Right upper lobe pneumonia versus pulmonary hemorrhage. The patient remained on the medical floor. She received IV antibiotics as well as subcutaneous Lovenox throughout. She was ambulating well. She was weaned off oxygen 48 hours prior to dismissal. She most likely will need oxygen at night which she has done for years. The patient was medically stable to be dismissed to home today. I did discuss dismissal with Dr. Mcneill. He would like to see patient back in a couple of weeks or so. DISCHARGE MEDICATIONS 1. Levaquin 500 mg one tablet daily for seven additional days. 2. Vitamin D3 2000 IU one tablet daily. 3. Tessalon Perles one capsule t.i.d. p.r.n. cough. 4. Protonix 40 mg one tablet daily. 5. Metoprolol succinate 50 mg one tablet daily. 6. Isosorbide dinitrate 15 mg daily. 7. Celexa 20 mg one tablet daily. 8. Brio one puff daily. 9. Xanax 0.5 mg one tablet p.o. b.i.d. p.r.n. 10. Alprazolam 0.25 mg one tablet p.o. b.i.d. p.r.n. 11. Proventil inhaler two puffs four times daily. 12. Nitroglycerin sublingually p.r.n. 13. Atorvastatin 20 mg one tablet at bedtime. 14. Losartan (Cozaar) 100 mg one tablet daily. 15. Eliquis 5 mg one tablet p.o. b.i.d. FOLLOWUP The patient will follow up with Dr. Jose Angel Blakely in one week. Follow up with Dr. Mcneill in two weeks. [facility]
== END 2017-12-28 13:40 | disposition home or self-care (01) | DRG 194 ==
LOC: MED 15:34 → ED 15:34 → MED 19:57
PROVIDERS: ADMIT Family Medicine; ATTEND Family Medicine